=== PATIENT | male | born 1960 | race Caucasian/White ===

== ENCOUNTER → 2016-07-26 | Outpatient (CLI) | payer OTHER ==
[~2016-07-26] VITALS: Ht 175.3 cm; Wt 104.8 kg
[~2016-07-26] MED LIST: ALBUAER2 INH; DXY100 PO; IPRASOL4 NEB; LTRCR30 TOP; MOME200A INH; TIOTCAP INH
[2016-07-26 15:44] VITALS: BP 175/110; PULSE 112; Ht 175.3 cm; Wt 104.8 kg
[2016-07-26 15:45] VITALS: BP 156/84
== END | disposition home or self-care (01) ==
LOC: C.NEUR 15:02
PROVIDERS: ATTEND Physician Assistant
DX: G47.33 Obstructive sleep apnea (adult) (pediatric) (principal)

== ENCOUNTER → 2016-12-18 | Outpatient (CLI) | payer OTHER ==
[2016-12-18 18:19] LABS: BLOOD UREA NITROGEN 12 mg/dl (7-18); CALCIUM 9.3 mg/dl (8.5-10.1); CARBON DIOXIDE 33 mmol/L (21-32); CHLORIDE 102 mmol/L (98-107); GLUCOSE 105 mg/dl (70-99); POTASSIUM 4.2 mmol/L (3.5-5.1); SODIUM 138 mmol/L (136-145)
== END | disposition home or self-care (01) ==
LOC: C.LABPVFM 11:14
PROVIDERS: ATTEND Family Medicine
DX: I10 Essential (primary) hypertension (principal)

== ENCOUNTER → 2017-09-02 | Outpatient (CLI) | payer OTHER ==
[~2017-09-02] VITALS: Ht 175.3 cm; Wt 102.7 kg
[2017-09-02 16:27] VITALS: BP 146/87; PULSE 102; Ht 175.3 cm; Wt 102.7 kg
== END | disposition home or self-care (01) ==
LOC: C.NEUR 15:20
PROVIDERS: ATTEND Physician Assistant Medical
DX: G47.33 Obstructive sleep apnea (adult) (pediatric) (principal); J44.9 Chronic obstructive pulmonary disease, unspecified; R06.2 Wheezing

== ENCOUNTER → 2017-11-18 | Outpatient (CLI) | payer OTHER ==
[2017-11-17 17:44] LABS: BASO % 0.6 %; BASO ABS # 0.04 K/uL (0-0.2); EOS % 1.5 %; HEMATOCRIT 45.1 % (42-52); HEMOGLOBIN 15.6 g/dL (14.0-18.0); IG# 0.04 K/uL (0.00-0.02); LYMPH % 34.4 %; LYMPH ABS # 2.31 K/uL (1.2-3.4); MEAN CELL VOLUME 100.4 fL (80-100); MEAN CORPUSCULAR HEMOGLOBIN 34.7 pg (25-34); MEAN CORPUSCULAR HGB CONC 34.6 g/dl (32-36); MEAN PLATELET VOLUME 10.5 fL (7.4-10.4); MONO % 6.1 %; MONO ABS # 0.41 K/uL (0.11-0.59); NEUT % 56.8 %; NEUT ABS # 3.81 K/uL (1.4-6.5); PLATELET COUNT 252 K/uL (130-400); RED CELL DISTRIBUTION WIDTH CV 13.6 % (11.5-14.5); RED CELL DISTRIBUTION WIDTH SD 49.7 fL (36.4-46.3); WHITE BLOOD COUNT 6.71 K/uL (4.8-10.8)
[2017-11-17 18:12] LABS: ALBUMIN 3.5 gm/dl (3.4-5.0); ALKALINE PHOSPHATASE 94 U/L (45-117); ALT/SGPT 27 U/L (12-78); AST/SGOT 17 U/L (15-37); BLOOD UREA NITROGEN 13 mg/dl (7-18); CALCIUM 8.6 mg/dl (8.5-10.1); CARBON DIOXIDE 29 mmol/L (21-32); CHOLESTEROL 182 mg/dl (0-200); CREATININE 1.31 mg/dl (0.60-1.40); GLUCOSE 142 mg/dl (70-99); LDL CHOLESTEROL CALCULATED 75 mg/dl; POTASSIUM 4.2 mmol/L (3.5-5.1); SODIUM 140 mmol/L (136-145); TOTAL PROTEIN 7.3 gm/dl (6.4-8.2)
[~2017-11-18] MED LIST changes: +IPRA-64 NEB; -IPRASOL4 NEB
[2017-11-18 07:03] LABS: HEMOGLOBIN A1C 5.9 % (4.5-5.6)
== END | disposition home or self-care (01) ==
LOC: C.LABPVFM 16:27
PROVIDERS: ATTEND Family Medicine
DX: F17.210 Nicotine dependence, cigarettes, uncomplicated (principal); I10 Essential (primary) hypertension

== ENCOUNTER 2021-11-28 10:23 | Inpatient (IN) ==
[2021-11-28] MEDS ORDERED: ACETAMINOPHEN 1,000 MG/100 ML VIAL IV STA (11:37)
[2021-11-28] MEDS ORDERED: LORazepam 2 MG/2 ML SYR IV STA ×2 (11:37→12:16)
[2021-11-28] MEDS ORDERED: MULTI-VITAMIN INFUSION 10 ML, THIAMINE HCL 100 MG, FOLIC ACID 1 MG in SODIUM CHLORIDE 0... IV ONE (11:37)
[2021-11-28] MEDS ORDERED: methylPREDNISolone 125 MG/2 ML VIAL IV STA (11:39)
[2021-11-28] MEDS ORDERED: ALBUT/IPRATROP 3MG/0.5MG NEB 3 ML VIAL NEB ONE (11:40)
--- NOTE | 2021-11-28 11:49 | Emergency Department Note ---
Impression & Plan Acute respiratory failure, COPD exacerbation, Alcohol withdrawal, Left sided abdominal pain ED Provider Note NAME: ROBERT PUGH AGE: 61 SEX: M ARRIVES VIA: Walk-In INFORMANT: Patient ED PROVIDER(S): August Rm MD CHIEF COMPLAINT: Abdominal pain, shortness of breath, referred. PLAN: Disposition: Admit MEDICAL DECISION MAKING: The patient is a pleasant 61-year-old gentleman with a past medical history of COPD, alcohol abuse/dependence, hyperlipidemia, hypertension, CAROLYN, history of lacunar stroke who presents to the emergency department valuation of left flank/abdominal pain that has been ongoing since Friday when he reports he had a fall when he recalls "choking on a pretzel" but also admits that he was drinking alcohol. The patient denies any history of withdrawal but admits he is not gone more than a day without drinking in a long time. He reports he last had a drink this morning. He was seen by his PCPs office and was referred to the emergency department today. He denies blood in his urine. He denies vomiting or diarrhea. He reports shortness of breath with increased wheezing in the setting of his COPD and daily smoking. On arrival, the patient is uncomfortable but no acute distress, afebrile, HR 100s with O2 saturation in the mid 90s but with respiratory rate in the mid to upper 20s and mild increased work of breathing with diffuse wheezes bilaterally with prolonged expiratory phase. He appears clinically dry. He has mild left upper abdominal and flank tenderness without guarding or rebound. EKG without overt acute ischemia. WBC, hemoglobin and platelets within normal limits. Chemistry without metabolic acidosis. Electrolytes without significant abnormality. LFTs unremarkable. High-sensitivity troponin 29.7, nonspecific. Lipase within normal limits. Medical alcohol was undetectable. COVID-19 RNA, JEROME test was negative. CT of the chest and abdomen pelvis were performed and were negative for acute traumatic findings. Note is made of mucous plugging. Upon reevaluation the patient continued to have increased work of breathing despite hour-long DuoNeb and steroid treatment. Thus, he was placed on BiPAP for respiratory failure. He was also treated with IV Ativan for suspicion of alcohol withdrawal. Case was discussed with Dr. Clarke, [facility] hospitalist, who will evaluate the patient for admission. Triage Nursing notes reviewed and agree them. Prior medical records reviewed Vital Signs: reviewed and remarkable for tachypnea and tachycardia. Differential diagnosis: Appendicitis, testicular torsion, infections, diverticulitis, UTI, obstruction, mesenteric ischemia, aortic pathology, inflammatory bowel disease, renal colic, PUD, pancreatitis, biliary pathology, hernia, volvulus, constipation, as well as other pathologies. ER treatment provided: See below. Diagnostics interpreted by me: ECG: Sinus tachycardia, 124 bpm, no ectopy, no overt ST elevation or depression, QTC 445, QRS 70. Cardiac Monitoring: An order for continuous cardiac monitoring was placed and demonstrated sinus tachycardia, 124 bpm, no ectopy. Laboratory studies: See below Imaging studies: See below Consultation(s): Dr. Clarke, [facility] hospitalist HPI: The patient is a pleasant 61-year-old gentleman with a past medical history of COPD, alcohol abuse/dependence, hyperlipidemia, hypertension, CAROLYN, history of lacunar stroke who presents to the emergency department valuation of left flank/abdominal pain that has been ongoing since Friday when he reports he had a fall when he recalls "choking on a pretzel" but also admits that he was drinking alcohol. The patient denies any history of withdrawal but admits he is not gone more than a day without drinking in a long time. He reports he last had a drink this morning. He was seen by his PCPs office and was referred to the emergency department today. He denies blood in his urine. He denies vomiting or diarrhea. He reports shortness of breath with increased wheezing in the setting of his COPD and daily smoking. ROS: See above HPI for pertinent positives & negatives. A total of 10 systems reviewed and were otherwise negative. VITALS:See Below PHYSICAL EXAMINATION: GENERAL: Awake, alert, uncomfortable-appearing, in no distress HENT: Normocephalic, atraumatic. Oropharynx with dry mucous membranes and otherwise unremarkable. EYES: Normal conjunctiva. Sclera non-icteric. NECK: Supple. No nuchal rigidity. FROM. No JVD. RESPIRATORY: Mild increased work of breathing with diffuse wheezes bilaterally with prolonged expiratory phase. CARDIAC: Regular rate, normal rhythm. Extremities warm and well perfused. Pulses equal. ABDOMEN: Soft, non-distended. No tenderness to palpation. No rebound or guarding. No masses. RECTAL: Deferred. MUSCULOSKELETAL: Chest examination reveals no tenderness. The back is symmetrical on inspection without obvious abnormality. There is no CVA tenderness to palpation. No joint edema. LOWER EXTREMITIES: Calves are equal size bilaterally and non-tender. No edema. No discoloration. NEURO: Normal sensorium. No sensory or motor deficits noted. SKIN: No rash or jaundice noted. ED COURSE: Critical Care: I have personally spent greater than 75 minutes of critical care time in the direct management of this patient. This includes bedside care, interpretation of diagnostic studies, and testing, discussion with consultants, patient, and family members, and other required patient management activities. This 75 minutes is in excess of all separately billable procedures. August Rm MD Past Med/Surg History Medical History Alcohol abuse, in remission COPD (chronic obstructive pulmonary disease) Encounter for immunization Essential hypertension Loss of consciousness Mixed hyperlipidemia Nondisplaced fracture of left great toe Obesity Routine health maintenance Syncope Unresponsive episode Surgical History History of hernia repair History of incision and drainage of skin abscess, simple History of vasectomy Family History Mother Hypertension Myocardial infarction Diabetes Stroke Father Myocardial infarction Hyperlipemia Colorectal cancer Denies family history of Ovarian cancer Prostate cancer Breast cancer Social History Smoking Status: Current every day smoker packs per day: 0.5; Cigarettes Per Day: 15; Second Hand Exposure: No; Do You Dip or Chew Tobacco: No; Tobacco Cessation Education Requested by Patient: No Hx Alcohol Use: Yes Alcohol type: beer Alcohol Intake Frequency: 4 or More x per/Week Hx Substance Use: No Preferred Language: Maltese Communication Ability: Effective Investor Relations Specialist Required: No Beliefs That Will Affect Care: None marital status: Current Living Situation: Alone current occupational status: retired Other Information That Helps Us Care for You: No Feels Safe at Home: Yes Safety Concerns: Feels Safe At This Time Dental Care, Regularly: Yes Seatbelt Use: never Sunscreen Use: No Assistive Devices: CPAP Allergies Allergies Allergy/AdvReac Type Severity Reaction Status Date / Time No Known Allergies Allergy NONE Verified 11/28/21 09:26 Home Meds Home Medications Medication Instructions Recorded Confirmed aspirin 81 mg tablet,delayed 81 mg PO DAILY 08/31/19 11/28/21 release Previous Rx's Medication Instructions Recorded fluticasone fur. 100 mcg-umeclid 1 inh inhalation DAILY #60 ea 02/23/21 62.5 mcg-vilant 25 mcg inhalat.powder (Trelegy Ellipta) levalbuterol HCl 0.31 mg/3 mL See Rx Instructions .Route 05/04/21 solution for nebulization .COMPLEX #540 mL lisinopril 20 1 tab PO DAILY #90 tabs 05/04/21 mg-hydrochlorothiazide 25 mg tablet nicotine 14 mg/24 hr daily 1 patch transdermal DAILY #28 ea 05/04/21 transdermal patch nicotine 7 mg/24 hr daily 1 patch transdermal Q24H #28 ea 05/04/21 transdermal patch cyclobenzaprine 10 mg tablet 10 mg PO TID PRN muscle spasm #14 05/25/21 tabs blood sugar diagnostic (Blood #50 ea 09/03/21 Glucose Test) blood-glucose meter #1 ea 09/03/21 buspirone 15 mg tablet 15 mg PO TID PRN anxiety #60 tabs 09/03/21 varenicline 1 mg tablet 1 mg PO BID #180 tabs 10/08/21 albuterol sulfate 90 mcg/actuation 2 puff inhalation .COMPLEX PRN 10/30/21 aerosol inhaler shortness of breath or wheezing #18 grams lancets 26 gauge #100 ea 11/28/21 Results & Data (ED) Vital Signs Vital Signs - 24 hr 11/28/21 10:29 11/28/21 11:52 11/28/21 11:54 Temperature 36.8 C Temperature Source Temporal Artery Scan Pulse Rate 85 126 H 120 H Pulse Rate from SpO2 Sensor 124 H 120 H Respiratory Rate 18 Respiratory Effort / Characteristics Respiratory Pattern Blood Pressure 163/89 H Blood Pressure Mean 113 Pulse Oximetry 97 99 99 Oxygen Delivery Method Room Air Fraction of Inspired Oxygen Sepsis Recent Fever Within 48 Hours No Sepsis New/Unexplained Change in Mental Status No Sepsis Action Taken by Nursing No Action Required 11/28/21 11:54 11/28/21 12:00 11/28/21 12:01 Temperature Temperature Source Pulse Rate 117 H 124 H Pulse Rate from SpO2 Sensor 118 H 120 H Respiratory Rate Respiratory Effort / Characteristics Respiratory Pattern Blood Pressure 173/143 H Blood Pressure Mean 153 Pulse Oximetry 99 94 Oxygen Delivery Method Fraction of Inspired Oxygen Sepsis Recent Fever Within 48 Hours Sepsis New/Unexplained Change in Mental Status Sepsis Action Taken by Nursing 11/28/21 12:01 11/28/21 12:10 11/28/21 12:20 Temperature Temperature Source Pulse Rate 119 H 122 H Pulse Rate from SpO2 Sensor 119 H 122 H Respiratory Rate Respiratory Effort / Characteristics Respiratory Pattern Blood Pressure 126/80 Blood Pressure Mean 95 Pulse Oximetry 99 100 Oxygen Delivery Method Fraction of Inspired Oxygen Sepsis Recent Fever Within 48 Hours Sepsis New/Unexplained Change in Mental Status Sepsis Action Taken by Nursing 11/28/21 12:30 11/28/21 12:30 11/28/21 12:40 Temperature Temperature Source Pulse Rate 116 H 119 H Pulse Rate from SpO2 Sensor 116 H Respiratory Rate Respiratory Effort / Characteristics Respiratory Pattern Blood Pressure 139/86 Blood Pressure Mean 103 Pulse Oximetry 99 Oxygen Delivery Method Fraction of Inspired Oxygen Sepsis Recent Fever Within 48 Hours Sepsis New/Unexplained Change in Mental Status Sepsis Action Taken by Nursing 11/28/21 13:03 11/28/21 13:04 11/28/21 13:04 Temperature Temperature Source Pulse Rate Pulse Rate from SpO2 Sensor 119 H 118 H Respiratory Rate 11 L Respiratory Effort / Characteristics Respiratory Pattern Blood Pressure 161/98 H Blood Pressure Mean 119 Pulse Oximetry 96 96 Oxygen Delivery Method Fraction of Inspired Oxygen Sepsis Recent Fever Within 48 Hours Sepsis New/Unexplained Change in Mental Status Sepsis Action Taken by Nursing 11/28/21 13:10 11/28/21 13:20 11/28/21 13:30 Temperature Temperature Source Pulse Rate 116 H 122 H Pulse Rate from SpO2 Sensor 122 H Respiratory Rate 21 28 H Respiratory Effort / Characteristics Respiratory Pattern Blood Pressure 165/105 H Blood Pressure Mean 125 Pulse Oximetry 95 Oxygen Delivery Method Fraction of Inspired Oxygen Sepsis Recent Fever Within 48 Hours Sepsis New/Unexplained Change in Mental Status Sepsis Action Taken by Nursing 11/28/21 13:30 11/28/21 13:40 11/28/21 13:50 Temperature Temperature Source Pulse Rate 116 H 112 H 124 H Pulse Rate from SpO2 Sensor Respiratory Rate 20 18 29 H Respiratory Effort / Characteristics Respiratory Pattern Blood Pressure Blood Pressure Mean Pulse Oximetry Oxygen Delivery Method Fraction of Inspired Oxygen Sepsis Recent Fever Within 48 Hours Sepsis New/Unexplained Change in Mental Status Sepsis Action Taken by Nursing 11/28/21 14:00 11/28/21 14:00 11/28/21 14:10 Temperature Temperature Source Pulse Rate 118 H 123 H Pulse Rate from SpO2 Sensor 118 H Respiratory Rate 20 25 H Respiratory Effort / Characteristics Respiratory Pattern Blood Pressure 182/111 H Blood Pressure Mean 134 Pulse Oximetry 96 Oxygen Delivery Method Fraction of Inspired Oxygen Sepsis Recent Fever Within 48 Hours Sepsis New/Unexplained Change in Mental Status Sepsis Action Taken by Nursing 11/28/21 13:59 Temperature Temperature Source Pulse Rate 119 H Pulse Rate from SpO2 Sensor Respiratory Rate 19 Respiratory Effort / Characteristics Spontaneous Respiratory Pattern Regular Blood Pressure Blood Pressure Mean Pulse Oximetry 95 Oxygen Delivery Method Fraction of Inspired Oxygen 28 Sepsis Recent Fever Within 48 Hours Sepsis New/Unexplained Change in Mental Status Sepsis Action Taken by Nursing Laboratory Data Attestation: I reviewed the patient's lab results. Result diagrams: 11/28/21 11:40 11/28/21 11:40 Lab Results 11/28/21 11/28/21 11/28/21 Range/Units 11:40 11:40 11:40 WBC 8.13 (4.8-10.8) K/ul RBC 4.12 L (4.63-6.08) M/uL Hgb 14.1 (14.0-18.0) g/dl POC Hgb (14.0-18.0) g/dl Hct 39.4 L (40.1-51.0) % POC Hct (42-52) % MCV 95.6 (80.0-100.0) fL MCH 34.2 H (25.0-34.0) pg MCHC 35.8 (32.0-36.0) g/dL RDW Std Deviation 45.5 (36.4-46.3) fL RDW Coeff of Tommy 13.0 (11.5-14.5) % Plt Count 303 (130-400) K/uL MPV 9.8 (9.4-12.4) fL Immature Gran % (Auto) 1.1 % Neut % (Auto) 68.9 % Lymph % (Auto) 21.0 % [place] % (Auto) 6.8 % Eos % (Auto) 1.5 % Baso % (Auto) 0.7 % Neut # (Auto) 5.60 (1.4-6.5) K/uL Lymph # (Auto) 1.71 (1.2-3.4) K/uL [place] # (Auto) 0.55 (0.24-0.82) K/uL Eos # (Auto) 0.12 (0-0.50) K/uL Baso # (Auto) 0.06 (0-0.2) K/uL Immature Gran # (Auto) 0.09 H (0.00-0.02) K/uL PT (9.0-12.0) Seconds INR (0.9-1.1) POC Sodium (135-144) mmol/L Sodium 133 L (136-145) mmol/L POC Potassium (3.3-5.0) mmol/L Potassium 4.3 (3.5-5.1) mmol/L POC Chloride (101-112) mmol/L Chloride 94 L (98-107) mmol/L Carbon Dioxide 29 (21-32) mmol/L POC Total CO2 (24-31) mmol/L Anion Gap 10 (3-11) POC Anion Gap (16-25) mmol/L POC BUN (7-18) mg/dl BUN 12 (6-23) mg/dl Creatinine 1.14 (0.6-1.4) mg/dl POC Creatinine (0.6-1.3) mg/dl Est Cr Clr Drug Dosing Not Reportable Est GFR ( Amer) 80.6 ml/min Est GFR (Non-Af Amer) 69.5 ml/min BUN/Creatinine Ratio 10.5 (10-20) Glucose 161 H (70-99(Fasting)) mg/dl POC Glucose (other) (70-99) mg/dl Calcium 9.5 (8.5-10.1) mg/dl POC Ioniz Calcium Renzo (1.12-1.32) mmol/l Phosphorus (2.5-4.9) mg/dl Magnesium (1.7-2.4) mg/dl Total Bilirubin 0.6 (0.2-1.0) mg/dl AST 34 (13-39) U/L ALT 45 (7-52) U/L Alkaline Phosphatase 75 (34-104) U/L Troponin I High Sens 29.7 H (0-20) pg/ml Total Protein 7.6 (6.0-8.3) gm/dl Albumin 4.2 (3.4-5.0) gm/dl Globulin 3.4 (2.5-4.0) gm/dl Albumin/Globulin Ratio 1.2 (0.9-2) Lipase 13 (11-82) U/L Ethyl Alcohol mg/dL (<10.0) mg/dl SARS-CoV-2, RNA, NAAT (NEGATIVE) 11/28/21 11/28/21 11/28/21 Range/Units 11:40 11:40 11:40 WBC (4.8-10.8) K/ul RBC (4.63-6.08) M/uL Hgb (14.0-18.0) g/dl POC Hgb (14.0-18.0) g/dl Hct (40.1-51.0) % POC Hct (42-52) % MCV (80.0-100.0) fL MCH (25.0-34.0) pg MCHC (32.0-36.0) g/dL RDW Std Deviation (36.4-46.3) fL RDW Coeff of Tommy (11.5-14.5) % Plt Count (130-400) K/uL MPV (9.4-12.4) fL Immature Gran % (Auto) % Neut % (Auto) % Lymph % (Auto) % [place] % (Auto) % Eos % (Auto) % Baso % (Auto) % Neut # (Auto) (1.4-6.5) K/uL Lymph # (Auto) (1.2-3.4) K/uL [place] # (Auto) (0.24-0.82) K/uL Eos # (Auto) (0-0.50) K/uL Baso # (Auto) (0-0.2) K/uL Immature Gran # (Auto) (0.00-0.02) K/uL PT 9.9 (9.0-12.0) Seconds INR 0.9 (0.9-1.1) POC Sodium (135-144) mmol/L Sodium (136-145) mmol/L POC Potassium (3.3-5.0) mmol/L Potassium (3.5-5.1) mmol/L POC Chloride (101-112) mmol/L Chloride (98-107) mmol/L Carbon Dioxide (21-32) mmol/L POC Total CO2 (24-31) mmol/L Anion Gap (3-11) POC Anion Gap (16-25) mmol/L POC BUN (7-18) mg/dl BUN (6-23) mg/dl Creatinine (0.6-1.4) mg/dl POC Creatinine (0.6-1.3) mg/dl Est Cr Clr Drug Dosing Est GFR ( Amer) ml/min Est GFR (Non-Af Amer) ml/min BUN/Creatinine Ratio (10-20) Glucose (70-99(Fasting)) mg/dl POC Glucose (other) (70-99) mg/dl Calcium (8.5-10.1) mg/dl POC Ioniz Calcium Renzo (1.12-1.32) mmol/l Phosphorus 3.4 (2.5-4.9) mg/dl Magnesium 1.7 (1.7-2.4) mg/dl Total Bilirubin (0.2-1.0) mg/dl AST (13-39) U/L ALT (7-52) U/L Alkaline Phosphatase (34-104) U/L Troponin I High Sens (0-20) pg/ml Total Protein (6.0-8.3) gm/dl Albumin (3.4-5.0) gm/dl Globulin (2.5-4.0) gm/dl Albumin/Globulin Ratio (0.9-2) Lipase (11-82) U/L Ethyl Alcohol mg/dL < 10.0 (<10.0) mg/dl SARS-CoV-2, RNA, NAAT (NEGATIVE) 11/28/21 11/28/21 Range/Units 11:47 12:20 WBC (4.8-10.8) K/ul RBC (4.63-6.08) M/uL Hgb (14.0-18.0) g/dl POC Hgb 14.3 (14.0-18.0) g/dl Hct (40.1-51.0) % POC Hct 42 (42-52) % MCV (80.0-100.0) fL MCH (25.0-34.0) pg MCHC (32.0-36.0) g/dL RDW Std Deviation (36.4-46.3) fL RDW Coeff of Tommy (11.5-14.5) % Plt Count (130-400) K/uL MPV (9.4-12.4) fL Immature Gran % (Auto) % Neut % (Auto) % Lymph % (Auto) % [place] % (Auto) % Eos % (Auto) % Baso % (Auto) % Neut # (Auto) (1.4-6.5) K/uL Lymph # (Auto) (1.2-3.4) K/uL [place] # (Auto) (0.24-0.82) K/uL Eos # (Auto) (0-0.50) K/uL Baso # (Auto) (0-0.2) K/uL Immature Gran # (Auto) (0.00-0.02) K/uL PT (9.0-12.0) Seconds INR (0.9-1.1) POC Sodium 134 L (135-144) mmol/L Sodium (136-145) mmol/L POC Potassium 4.4 (3.3-5.0) mmol/L Potassium (3.5-5.1) mmol/L POC Chloride 93 L (101-112) mmol/L Chloride (98-107) mmol/L Carbon Dioxide (21-32) mmol/L POC Total CO2 30 (24-31) mmol/L Anion Gap (3-11) POC Anion Gap 16.0 (16-25) mmol/L POC BUN 12 (7-18) mg/dl BUN (6-23) mg/dl Creatinine (0.6-1.4) mg/dl POC Creatinine 1.1 (0.6-1.3) mg/dl Est Cr Clr Drug Dosing Est GFR ( Amer) ml/min Est GFR (Non-Af Amer) ml/min BUN/Creatinine Ratio (10-20) Glucose (70-99(Fasting)) mg/dl POC Glucose (other) 173 H (70-99) mg/dl Calcium (8.5-10.1) mg/dl POC Ioniz Calcium Rezno 1.14 (1.12-1.32) mmol/l Phosphorus (2.5-4.9) mg/dl Magnesium (1.7-2.4) mg/dl Total Bilirubin (0.2-1.0) mg/dl AST (13-39) U/L ALT (7-52) U/L Alkaline Phosphatase (34-104) U/L Troponin I High Sens (0-20) pg/ml Total Protein (6.0-8.3) gm/dl Albumin (3.4-5.0) gm/dl Globulin (2.5-4.0) gm/dl Albumin/Globulin Ratio (0.9-2) Lipase (11-82) U/L Ethyl Alcohol mg/dL (<10.0) mg/dl SARS-CoV-2, RNA, NAAT NEGATIVE (NEGATIVE) Administered Medications Discontinued Medications Albuterol (Albut/Ipratrop 3mg/0.5mg Neb 3 Ml Vial) 12 ml NEB ONE ONE; Protocol Stop: 11/28/21 11:41 Last Admin: 11/28/21 11:49 Dose: 12 ml Documented By: HMR Multivitamins 10 ml/ Thiamine HCl 100 mg/ Folic Acid 1 mg/Sodium Chloride 1,011.2 mls @ 1,011.2 mls/hr IV .Q1H ONE Stop: 11/28/21 12:36 Last Admin: 11/28/21 12:07 Dose: 1,011.2 mls/hr Documented By: AB Acetaminophen (Ofirmev) 1,000 mg in 100 mls @ 400 mls/hr IV NOW STA Stop: 11/28/21 11:51 Last Admin: 11/28/21 11:49 Dose: 400 mls/hr Documented By: Ioversol (Optiray 320 100ml) 94 ml IV ONCE ONE Stop: 11/28/21 12:56 Last Admin: 11/28/21 12:55 Dose: 94 ml Documented By: URBANO(2) Labetalol HCl (Labetalol Hcl Iv 5 Mg/Ml 20ml) 5 mg IV NOW STA Stop: 11/28/21 14:45 Last Admin: 11/28/21 15:09 Dose: 5 mg Documented By: NEO Co-signed By: DEUCE Lorazepam (Lorazepam 2 Mg/1 Ml Vial) 1 mg IV NOW STA; Protocol Stop: 11/28/21 11:38 Last Admin: 11/28/21 11:55 Dose: 1 mg Documented By: Lorazepam (Lorazepam 2 Mg/1 Ml Vial) 2 mg IV NOW STA; Protocol Stop: 11/28/21 12:17 Last Admin: 11/28/21 12:26 Dose: 2 mg Documented By: Methylprednisolone (Methylprednisolone 125 Mg/2 Ml Vial) 125 mg IV NOW STA Stop: 11/28/21 11:40 Last Admin: 11/28/21 11:49 Dose: 125 mg Documented By: Morphine Sulfate (Morphine Sulfate 2 Mg/Ml Carp) 1 mg IV NOW STA Stop: 11/28/21 14:40 Last Admin: 11/28/21 15:15 Dose: 1 mg Documented By: NEO Imaging Data Radiologist's Impression: Abdomen/Pelvis CT 11/28/21 11:39 CT OF THE ABDOMEN AND PELVIS WITH CONTRAST CLINICAL HISTORY: left chest/abdomen pain, fall COMPARISON STUDY: Abdominal series December 07, 2015. TECHNIQUE: Following IV administration of 94 mL of Optiray, axial images of the abdomen and pelvis were obtained from the lung bases to the proximal femurs. Images were reviewed in the axial, sagittal, and coronal planes. IV contrast was administered without complication. Automated exposure control was utilized for the study. A dose lowering technique was utilized adhering to the principles of ALARA. FINDINGS: Please note that the chest CT will be reported separately. No hemoperitoneum or pneumoperitoneum is present. This exam is mildly compromised by motion artifact. There is no evidence for traumatic injury to the liver, spleen, adrenal glands, kidneys or pancreas. Hepatic steatosis is noted. No biliary or pancreatic ductal dilatation is present. There is a possible small calculus within lower pole of the left kidney. Subcentimeter hypodense right renal lesion is suboptimally assessed on this exam given motion artifact. However, this favors a cyst. 5.5 cm cyst arising from the lower pole of the left kidney is present. No evidence for a bowel obstruction. Sigmoid diverticulosis is noted without evidence for acute diverticulitis. No acute lumbar spine or pelvic fracture is identified. IMPRESSION: 1. No acute traumatic findings within the abdomen or pelvis although exam moderately compromised by motion artifact. 2. Hepatic steatosis. 3. No bowel obstruction. No bowel wall thickening. Sigmoid diverticulosis with out evidence for acute diverticulitis. ACT 112: Negative or not required by law. Electronically signed by: Negrito Siddiqi M.D. 11/28/2021 1:[address] 11/28/21 11:[address] WITH CONTRAST CT DOSE: 2093.59 mGy.cm HISTORY: Acute chest pain with possible aspiration left chest/ap pain, fall TECHNIQUE: Multiaxial CT images of the chest were performed following the IV administration of 94 cc of Optiray. A dose lowering technique was utilized adhering to the principles of ALARA. COMPARISON: CT abdomen and pelvis of same day, chest CT 05/09/2021. FINDINGS: Unremarkable thyroid. No pathologically enlarged lymph nodes. The heart is normal in size with moderate coronary artery calcifications. Atherosclerosis of the thoracic aorta without aneurysm or dissection. There is patency of the imaged great vessels. Unremarkable pulmonary artery. No pneumothorax, pleural effusion, airspace consolidation or overt pulmonary edema. Multifocal bibasilar predominant mucus plugging. Study is degraded by respiratory motion artifact. Mild emphysema. Stable 2 mm solid nodule of the left lung apex. Stable 4 mm nodule of the right upper lobe, image 83. Small cyst of the superior pole right kidney. Hepatic steatosis. Unremarkable soft tissues with bilateral gynecomastia. No acute fracture. Posterior disc osteophyte complex at T10-T11. Mild inferior compression of the L1 vertebral body is likely chronic. IMPRESSION: 1. Study degraded by respiratory motion artifact. 2. Bibasilar predominant mucus plugging. 3. No pleural effusion or airspace consolidation. 4. No acute fracture or pneumothorax. ACT 112: Negative or not required by law. Electronically signed by: Naeem Silverio M.D. 11/28/2021 1:42 PM Discharge Plan Visit Data Chief Complaint: Abdominal Pain Stated Complaint: PAIN IN RIBS, SOB ED Provider: August Rm Discharge Problem: Acute respiratory failure, COPD exacerbation, Alcohol withdrawal, Left sided abdominal pain
[2021-11-28 12:01] LABS: iSTAT Creatinine 1.1 mg/dl (0.6-1.3); iSTAT Hemoglobin 14.3 g/dl (14.0-18.0); iSTAT Ionized Calcium 1.14 mmol/l (1.12-1.32); iSTAT Potassium 4.4 mmol/L (3.3-5.0)
[2021-11-28 12:05] LABS: Basophils # (auto) 0.06 K/uL (0-0.2); Basophils % (auto) 0.7 %; Eosinophils # (auto) 0.12 K/uL (0-0.50); Eosinophils % (auto) 1.5 %; Hematocrit (blood only) 39.4 % (40.1-51.0); Hemoglobin 14.1 g/dl (14.0-18.0); Immature Granulocytes # (auto) 0.09 K/uL (0.00-0.02); Immature Granulocytes % (auto) 1.1 %; Lymphocytes # (auto) 1.71 K/uL (1.2-3.4); Mean Corpuscular Hemoglobin 34.2 pg (25.0-34.0); Mean Corpuscular Hgb Conc 35.8 g/dL (32.0-36.0); Mean Corpuscular Volume 95.6 fL (80.0-100.0); Mean Platelet Volume 9.8 fL (9.4-12.4); Monocytes # (auto) 0.55 K/uL (0.24-0.82); Monocytes % (auto) 6.8 %; Neutrophils % (auto) 68.9 %; Platelet Count 303 K/uL (130-400); RDW Standard Deviation 45.5 fL (36.4-46.3); Red Blood Count 4.12 M/uL (4.63-6.08); White Blood Count 8.13 K/ul (4.8-10.8)
[2021-11-28 12:24] LABS: INR 0.9 (0.9-1.1); Prothrombin Time 9.9 Seconds (9.0-12.0)
[2021-11-28 12:32] LABS: Alanine Aminotransferase 45 U/L (7-52); Albumin Globulin Ratio 1.2 (0.9-2); Albumin Level 4.2 gm/dl (3.4-5.0); Alkaline Phosphatase 75 U/L (34-104); Anion Gap 10 (3-11); Aspartate Aminotransferase 34 U/L (13-39); BUN Creatinine Ratio 10.5 (10-20); Bilirubin,Total 0.6 mg/dl (0.2-1.0); Blood Urea Nitrogen 12 mg/dl (6-23); Calcium 9.5 mg/dl (8.5-10.1); Carbon Dioxide 29 mmol/L (21-32); Chloride 94 mmol/L (98-107); Est GFR (African American) 80.6 ml/min; Est GFR (Non-African American) 69.5 ml/min; Globulin 3.4 gm/dl (2.5-4.0); Glucose 161 mg/dl (70-99(Fasting)); Lipase 13 U/L (11-82); Magnesium 1.7 mg/dl (1.7-2.4); Phosphorus 3.4 mg/dl (2.5-4.9); Potassium 4.3 mmol/L (3.5-5.1); Sodium 133 mmol/L (136-145); Total Protein 7.6 gm/dl (6.0-8.3)
[2021-11-28] MEDS ORDERED: OPTIRAY 320 100ml IV ONE (12:55)
--- NOTE | 2021-11-28 13:15 | CT Scan Report ---
CT OF THE ABDOMEN AND PELVIS WITH CONTRAST CLINICAL HISTORY: left chest/abdomen pain, fall COMPARISON STUDY: Abdominal series December 07, 2015. TECHNIQUE: Following IV administration of 94 mL of Optiray, axial images of the abdomen and pelvis we re obtained from the lung bases to the proximal femurs. Images were reviewed in the axial, sagittal, and coronal planes. IV contrast was administered without complication. Automated exposure control wa s utilized for the study. A dose lowering technique was utilized adhering to the principles of ALARA . FINDINGS: Please note that the chest CT will be reported separately. No hemoperitoneum or pneumoperit oneum is present. This exam is mildly compromised by motion artifact. There is no evidence for trauma tic injury to the liver, spleen, adrenal glands, kidneys or pancreas. Hepatic steatosis is noted. No biliary or pancreatic ductal dilatation is present. There is a possible small calculus within lower p ole of the left kidney. Subcentimeter hypodense right renal lesion is suboptimally assessed on this e xam given motion artifact. However, this favors a cyst. 5.5 cm cyst arising from the lower pole of th e left kidney is present. No evidence for a bowel obstruction. Sigmoid diverticulosis is noted withou t evidence for acute diverticulitis. No acute lumbar spine or pelvic fracture is identified. IMPRESSION: 1. No acute traumatic findings within the abdomen or pelvis although exam moderately compromised by m otion artifact. 2. Hepatic steatosis. 3. No bowel obstruction. No bowel wall thickening. Sigmoid diverticulosis without evidence for acute diverticulitis. ACT 112: Negative or not required by law. Electronically signed by: Negrito Siddiqi M.D. 11/28/2021 1:13 PM
--- NOTE | 2021-11-28 13:43 | CT Scan Report ---
CHEST CT WITH CONTRAST CT DOSE: 2093.59 mGy.cm HISTORY: Acute chest pain with possible aspiration left chest/ap pain, fall TECHNIQUE: Multiaxial CT images of the chest were performed following the IV administration of 94 cc of Optiray. A dose lowering technique was utilized adhering to the principles of ALARA. COMPARISON: CT abdomen and pelvis of same day, chest CT 05/09/2021. FINDINGS: Unremarkable thyroid. No pathologically enlarged lymph nodes. The heart is normal in size w ith moderate coronary artery calcifications. Atherosclerosis of the thoracic aorta without aneurysm o r dissection. There is patency of the imaged great vessels. Unremarkable pulmonary artery. No pneumothorax, pleural effusion, airspace consolidation or overt pulmonary edema. Multifocal bibasi lar predominant mucus plugging. Study is degraded by respiratory motion artifact. Mild emphysema. Sta ble 2 mm solid nodule of the left lung apex. Stable 4 mm nodule of the right upper lobe, image 83. Small cyst of the superior pole right kidney. Hepatic steatosis. Unremarkable soft tissues with bilat eral gynecomastia. No acute fracture. Posterior disc osteophyte complex at T10-T11. Mild inferior com pression of the L1 vertebral body is likely chronic. IMPRESSION: 1. Study degraded by respiratory motion artifact. 2. Bibasilar predominant mucus plugging. 3. No pleural effusion or airspace consolidation. 4. No acute fracture or pneumothorax. ACT 112: Negative or not required by law. Electronically signed by: Naeem Silverio M.D. 11/28/2021 1:42 PM
--- NOTE | 2021-11-28 13:44 | Electrocardiogram Report ---
Test Reason : Blood Pressure : / mmHG Vent. Rate : 124 BPM Atrial Rate : 124 BPM P-R Int : 144 ms QRS Dur : 070 ms QT Int : 310 ms P-R-T Axes : 070 031 063 degrees QTc Int : 445 ms Sinus tachycardia Otherwise normal ECG When compared with ECG of 31-AUG-2019 04:10, No significant change was found Confirmed by Hubert Feliciano ([id number]) on 11/28/2021 1:44:10 PM Referred By: Confirmed By:Phil Feliciano
--- NOTE | 2021-11-28 14:11 | History & Physical Report ---
Date of Service November 28, 2021 Assessment & Plan (1) COPD (chronic obstructive pulmonary disease): Plan: Acute on chronic COPD versus mucous plugging Patient with increased wheezing, required hour-long neb and BiPAP in ER No hypoxia Tachypneic on arrival to ER Continue Trelegy/formulary equivalent CTchest: Bibasilar mucous plugging, no pleural effusion or airspace consolidation, no acute fracture or pneumothorax Significant wheezing on exam Continue inhalers Scheduled nebs Azithromycin 500 mg x 3 days Incentive spirometry, flutter valve Guaifenesin twice daily Use percussion vest if not improving Received Methylpred 125 mg in ER, continued Methylpred 40 mg every 8 hours with wean as tolerated History of tobacco use, about 1.5 packs/day. Tobacco cessation encouraged, nicotine patch ordered No PFTs available for review - trop mildly elevated suspicious for demand, repeat pending, no clinical signs of acs On CPAP nightly with CAROLYN, last sleep medicine visit 10/17 Right lower quadrant abdominal pain, constipation versus stricture patient reports only very small bowel movement otherwise no BM in the last week. No obstruction seen on CT, moderate stool burden MiraLAX, bisacodyl ordered No leukocytosis Afebrile Creatinine approximately 1.11.2 at baseline, 1.14 on admission Admitting glucose 161 Ethyl alcohol less than 10 at time of admission COVID-negative CTchest: Bibasilar mucous plugging, no airspace consolidation, no acute fracture/pneumo CTabdomen: No acute traumatic findings, hepatic steatosis, no bowel obstruction, sigmoid diverticulosis without evidence of diverticulitis Bilirubin, AST, ALT, alk phos all within normal limits Patient does report for several months he has had about once a week difficulty swallowing solids and occasionally liquids, with solid food regurgitation about once a week. Otherwise does well. Reports that he does not have pain when swallowing, and does not have a history of reflux, and that he does not think his current symptoms are related to this. Current COPD exacerbation precludes EGD, speech swallow study pending, may consider barium esophagram if able to tolerate Type 2 DM A1c 7.6 at last PCP visit Patient was starting with dietary changes as outpatient, not yet on pharmacologic therapy Glucose checks AC/at bedtime, weight-based basal bolus while inpatient basal 12u BID, CF 35, Ratio 15 BMP daily Hyponatremia Mild, 134 In the setting of chronic alcohol use Improving from prior labs Alcohol abuse Last drink a.m. 12/25 Alcohol negative on admission No history of withdrawal/DTs Reports drinks 28 beers per day, has not had alcohol free day in some time DANIKA S protocol Hypertension Elevated in the setting of pain Continue lisinopril 20 mg, hydrochlorothiazide 25 mg daily Continue aspirin 1 mg morphine given for pain above Additional 10 mg labetalol given for acute hypertension Recheck pending DVT prophylaxis: Lovenox CODE STATUS: Full code Diet: N.p.o. pending speech eval, then heart healthy/MDM (2) Rib pain on left side: (3) Impaired fasting glucose: (4) Obstructive sleep apnea: (5) COPD with respiratory distress, acute: History of Present Illness Primary Care Provider: DO Cal Lynn is a 61-year-old male with a past medical history of obesity, hypertension, type 2 diabetes, tobacco abuse, COPD, alcohol abuse, chronic reflux esophagitis, CAROLYN, and lacunar stroke who presented to the ER with left flank/abdominal pain of 3-4 days. Reports he had a fall at that time, a joke on a pretzel, and was drinking alcohol at that time. Denies history of withdrawal syndrome, but has not gone for more than a day without alcohol use in "a long time ". Last drink this morning. Esteban is seen in the ER at bedside. Reports he initially came in for left abdominal pain which is worsening over the last week after he had a fall. Notes that he has not had a bowel movement in over a week other than a very small 1 today. Pain does not radiate and is in the left upper quadrant slightly off to 1 side by his rib. Does feel his belly is a little bit more bloated than normal. Denies bright red blood per rectum/melena. Reports he has been wheezing more in the last day or 2, although notes this is not what actually brought him in. Comfortable on BiPAP, denies shortness of breath at time of bedside visit. He reports that on arrival to ER he did feel short of breath and was very wheezy. Continues to smoke, 1.52.5 PPD for many years. Drinks alcohol daily, no history of withdrawal/DTs but drinks 28 beers per day and has not had an alcohol free day in some time. Last drink this morning. Denies fever, chills, sweats, cough, diarrhea, constipation, chest pain, Prash pressure, lightheadedness, dizziness. Does feel improved after an hour-long nebulizer and BiPAP, although notes his abdominal pain has not improved much. Did take his medications this Medical History: Reviewed Medications: Reviewed Surgical History: Reviewed Allergies: Reviewed Social History: Current tobacco use, daily alcohol use 28 beers per day with last drink morning of 11/28/2021 Code Status: Full code, surrogate decision maker would be brother Allergies Allergy/AdvReac Type Severity Reaction Status Date / Time No Known Allergies Allergy NONE Verified 11/28/21 09:26 Home Medications Medication Instructions Recorded Confirmed Type aspirin 81 mg tablet,delayed 81 mg PO DAILY 08/31/19 11/28/21 History release fluticasone fur. 100 mcg-umeclid 1 inh inhalation DAILY #60 ea 02/23/21 11/28/21 Rx 62.5 mcg-vilant 25 mcg inhalat.powder (Trelegy Ellipta) levalbuterol HCl 0.31 mg/3 mL See Rx Instructions .Route 05/04/21 11/28/21 Rx solution for nebulization .COMPLEX #540 mL lisinopril 20 1 tab PO DAILY #90 tabs 05/04/21 11/28/21 Rx mg-hydrochlorothiazide 25 mg tablet nicotine 14 mg/24 hr daily 1 patch transdermal DAILY #28 ea 05/04/21 11/28/21 Rx transdermal patch nicotine 21 mg/24 hr daily 1 patch transdermal DAILY #28 ea 05/04/21 11/28/21 Rx transdermal patch nicotine 7 mg/24 hr daily 1 patch transdermal Q24H #28 ea 05/04/21 11/28/21 Rx transdermal patch cyclobenzaprine 10 mg tablet 10 mg PO TID PRN muscle spasm #14 05/25/21 11/28/21 Rx tabs blood sugar diagnostic (Blood #50 ea 09/03/21 11/28/21 Rx Glucose Test) blood-glucose meter #1 ea 09/03/21 11/28/21 Rx buspirone 15 mg tablet 15 mg PO TID PRN anxiety #60 tabs 09/03/21 11/28/21 Rx varenicline 1 mg tablet 1 mg PO BID #180 tabs 10/08/21 11/28/21 Rx albuterol sulfate 90 mcg/actuation 2 puff inhalation .COMPLEX PRN 10/30/21 11/28/21 Rx aerosol inhaler shortness of breath or wheezing #18 grams lancets 26 gauge #100 ea 11/28/21 11/28/21 Rx Past Med/Surg History Medical History Alcohol abuse, in remission COPD (chronic obstructive pulmonary disease) Encounter for immunization Essential hypertension Loss of consciousness Mixed hyperlipidemia Nondisplaced fracture of left great toe Obesity Routine health maintenance Syncope Unresponsive episode Surgical History History of hernia repair History of incision and drainage of skin abscess, simple History of vasectomy Family History Mother Hypertension Myocardial infarction Diabetes Stroke Father Myocardial infarction Hyperlipemia Colorectal cancer Denies family history of Ovarian cancer Prostate cancer Breast cancer Social History Smoking Status: Unknown if ever smoked packs per day: 0.5; Cigarettes Per Day: 15; Second Hand Exposure: No; Hx Alcohol Use: Yes Alcohol Intake Frequency: 4 or More x per/Week Hx Substance Use: No Preferred Language: E[place] marital status: current occupational status: retired Feels Safe at Home: Yes Dental Care, Regularly: Yes Seatbelt Use: never Sunscreen Use: No Review of Systems Review of Systems: All systems reviewed & are unremarkable except as noted in Subjective Physical Exam Physical Exam: General: A&Ox3. NAD. Cooperative. HEENT: Atraumatic, normocephalic. Thick neck habitus. Vision and hearing intact Pulm: Diffuse end expiratory wheezes, scattered slight inspiratory wheezing. Verbal on BiPAP. Symmetrical chest rise. Cardiac: RRR, -mrg. Radial pulses intact and symmetrical. Abdominal: Softly distended, mildly tender focally at left upper quadrant without radiation/rebound. Tympanitic to percussion. Extremities: Warm, dry. No edema. Asphalt Paver Operator strength, hip flexion, ankle dorsiflexion/plantarflexion intact. Results & Data Results & Data ([facility]) Vital Signs (Past 12 Hours) Vital Signs Temp Pulse Resp BP Pulse Ox O2 Del Method 11/28/21 13:20 122 H 28 H 95 11/28/21 13:10 116 H 21 11/28/21 13:04 161/98 H 11/28/21 13:04 11 L 96 11/28/21 13:03 96 11/28/21 12:40 119 H 11/28/21 12:30 116 H 99 11/28/21 12:30 139/86 11/28/21 12:20 122 H 100 11/28/21 12:10 119 H 99 11/28/21 12:01 126/80 11/28/21 12:01 124 H 94 11/28/21 12:00 117 H 99 11/28/21 11:54 173/143 H 11/28/21 11:54 120 H 99 11/28/21 11:52 126 H 99 11/28/21 10:29 36.8 C 85 18 163/89 H 97 Room Air PG Care Time/CCT Total # of Minutes Spent Total Time Spent with Patient: Total time spent is greater than 50% in coordination of care (as documented) at patient's floor/unit and/or counseling patient: Coding Level of Care Code 94517 Initial Inpt Care Lvl 2 Diagnoses COPD (chronic obstructive pulmonary disease) J44.9 Rib pain on left side R07.81 Impaired fasting glucose R73.01 Obstructive sleep apnea G47.33 COPD with respiratory distress, acute J44.1
[2021-11-28] MEDS ORDERED: MoRPHine SULFATE 2 MG/ML CARP IV STA (14:39)
[2021-11-28] MEDS ORDERED: LABETALOL HCL IV 5 MG/ML 20ML IV STA (14:44)
[2021-11-28] MEDS ORDERED: CARBOHYDRATES FOR HYPOGLYCEMIA PO PRN (16:20)
[2021-11-28] MEDS ORDERED: LORazepam 1 MG in SYRINGE 0.5 ML IV PRN (16:20)
[2021-11-28] MEDS ORDERED: DEXTROSE 50% 50 ML SYRINGE IV PRN (16:20)
[2021-11-28] MEDS ORDERED: LORazepam 2 MG in SYRINGE 1 ML IV PRN (16:20)
[2021-11-28] MEDS ORDERED: ACETAMINOPHEN 325 MG TAB PO PRN (16:20)
[2021-11-28] MEDS ORDERED: Ativan IV Alcohol Withdrawal--Active Protocol IV PRN (16:20)
[2021-11-28] MEDS ORDERED: LORazepam 3 MG in SYRINGE 1.5 ML IV PRN (16:20)
[2021-11-28] MEDS ORDERED: busPIRone 15 MG TAB PO PRN (16:20)
[2021-11-28] MEDS ORDERED: ALBUTEROL HFA 8 GM INHALER INH PRN (16:20)
[2021-11-28] MEDS ORDERED: CYCLOBENZAPRINE HCL 10 MG TAB PO PRN (16:20)
[2021-11-28] MEDS ORDERED: bisacodyL 5 MG TABEC PO PRN (16:20)
[2021-11-28] MEDS ORDERED: GLUCAGON FOR INJ 1 MG VIAL SQ PRN (16:20)
[2021-11-28] MEDS ORDERED: GLUCOSE 10 TAB/TUBE PO PRN (16:20)
[2021-11-28] MEDS ORDERED: GLUCOSE 40% GEL 15 GM TUBE PO PRN (16:20)
[2021-11-28] MEDS ORDERED: amLODIPine BESYLATE 5 MG TAB PO ONE (17:27)
[2021-11-28 17:33] LABS: Folate (Folic Acid) 6.66 ng/ml (>5.38)
[2021-11-28] MEDS: AZITHROMYCIN 500 MG in DEXTROSE 5% 250 ML IV SCH (17:56)
[2021-11-28] MEDS: FOLIC ACID 1 MG in SYRINGE 9.8 ML IV SCH (17:57)
[2021-11-28] MEDS: NICOTINE 21 MG/24 HR TDSY TD SCH (17:57)
[2021-11-28] MEDS: THIAMINE HCL 100 MG TAB PO SCH (17:58)
[2021-11-28] MEDS: POLYETHYLENE (MIRALAX) 17 GM PACK PO SCH (17:58)
[2021-11-28] MEDS: INSULIN ASPART PER UNIT SC SCH ×2 (18:11→20:28)
[2021-11-28] MEDS: Patient's HEIGHT &/or WEIGHT Needed SCH ×2 (19:09→19:28)
[2021-11-28] MEDS: ALBUT/IPRATROP 3MG/0.5MG NEB 3 ML VIAL INH SCH (19:46)
[2021-11-28] MEDS: LANTUS PER UNIT CHARGE SQ SCH (20:27)
[2021-11-28] MEDS: guaiFENesin 600 MG TABCR PO SCH (20:27)
[2021-11-29] MEDS: ALBUT/IPRATROP 3MG/0.5MG NEB 3 ML VIAL INH SCH ×4 (00:23→19:25)
[2021-11-29] MEDS ORDERED: LEVALBUTEROL HCL 0.63 MG/3 ML NEB NEB PRN (02:07)
[2021-11-29 02:19] LABS: Appearance Urine Clear (Clear); Bilirubin Urine Negative (Negative); Blood Urine Negative (Negative); Color Urine Yellow; Glucose Urine UA 3+ (Negative); Ketones Urine Negative (Negative); Leukocyte Esterase Urine Negative (Negative); Nitrite Urine Negative (Negative); Protein Urine Negative (Negative); Specific Gravity Urine 1.022 (1.000-1.030); Urobilinogen Urine Negative (Negative)
[2021-11-29 05:53] LABS: Basophils # (auto) 0.01 K/uL (0-0.2); Basophils % (auto) 0.1 %; Eosinophils # (auto) 0.01 K/uL (0-0.50); Eosinophils % (auto) 0.1 %; Hematocrit (blood only) 36.6 % (40.1-51.0); Immature Granulocytes # (auto) 0.13 K/uL (0.00-0.02); Immature Granulocytes % (auto) 1.3 %; Lymphocytes # (auto) 1.28 K/uL (1.2-3.4); Lymphocytes % (auto) 12.6 %; Mean Corpuscular Hemoglobin 34.9 pg (25.0-34.0); Mean Corpuscular Hgb Conc 35.5 g/dL (32.0-36.0); Mean Corpuscular Volume 98.1 fL (80.0-100.0); Mean Platelet Volume 9.8 fL (9.4-12.4); Monocytes % (auto) 4.9 %; Neutrophils # (auto) 8.24 K/uL (1.4-6.5); Platelet Count 256 K/uL (130-400); RDW Coefficient of Variation 13.1 % (11.5-14.5); RDW Standard Deviation 46.7 fL (36.4-46.3); Red Blood Count 3.73 M/uL (4.63-6.08); White Blood Count 10.17 K/ul (4.8-10.8)
[2021-11-29 06:26] LABS: Albumin Globulin Ratio 1.3 (0.9-2); Albumin Level 3.6 gm/dl (3.4-5.0); BUN Creatinine Ratio 18.1 (10-20); Bilirubin,Total 0.5 mg/dl (0.2-1.0); Calcium 8.7 mg/dl (8.5-10.1); Creatinine Clr Calc Pharmacy 90.8 ml/min; Est GFR (African American) 78.9 ml/min; Est GFR (Non-African American) 68.1 ml/min; Globulin 2.8 gm/dl (2.5-4.0); Potassium 4.1 mmol/L (3.5-5.1); Total Protein 6.4 gm/dl (6.0-8.3)
[2021-11-29 06:48] LABS: Estimated Average Glucose 180 mg/dl; Hemoglobin A1C 7.9 % (4.5-5.6)
[2021-11-29] MEDS: methylPREDNISolone 40 MG in SYRINGE 0 ML IV SCH ×2 (08:18→16:47)
[2021-11-29] MEDS: FOLIC ACID 1 MG in SYRINGE 9.8 ML IV SCH (08:18)
[2021-11-29] MEDS: guaiFENesin 600 MG TABCR PO SCH ×2 (08:18→20:49)
[2021-11-29] MEDS: FLUTICASONE FUROATE 100MCG 14 PUFFS/INHALER INH SCH (08:19)
[2021-11-29] MEDS: NICOTINE 21 MG/24 HR TDSY TD SCH (08:19)
[2021-11-29] MEDS: LISINOPRIL/HCTZ 20/25MG 1 TAB PO SCH (08:19)
[2021-11-29] MEDS: POLYETHYLENE (MIRALAX) 17 GM PACK PO SCH (08:21)
[2021-11-29] MEDS: ASPIRIN 81 MG ECTAB PO SCH (08:21)
[2021-11-29] MEDS: THIAMINE HCL 100 MG TAB PO SCH (08:22)
[2021-11-29] MEDS: LANTUS PER UNIT CHARGE SQ SCH ×2 (08:29→20:49)
[2021-11-29] MEDS: INSULIN ASPART PER UNIT SC SCH ×4 (08:29→20:50)
[2021-11-29] MEDS: UMECLIDINIUM/VILANTEROL 62.5/25MCG 7 PUFFS/INHALER INH SCH (08:34)
[2021-11-29] MEDS ORDERED: MoRPHine SULFATE 2 MG/ML CARP IV STA (12:03)
--- NOTE | 2021-11-29 14:02 | Hospitalist Progress Note ---
Date of Service November 29, 2021 Assessment & Plan (1) COPD (chronic obstructive pulmonary disease): Plan: Acute on chronic COPD versus mucous plugging - CT chest showed mucus plug Patient with improved wheezing following duonebs and steroids Continue Trelegy/formulary equivalent CTchest: Bibasilar mucous plugging, no pleural effusion or airspace consolidation, no acute fracture or pneumothorax Significant wheezing on exam Continue inhalers Scheduled nebs Azithromycin 500 mg x 3 days Incentive spirometry, flutter valve Guaifenesin twice daily Use percussion vest if not improving Type 2 DM A1c 7.6 at last PCP visit Patient was starting with dietary changes as outpatient, not yet on pharmacologic therapy Glucose checks AC/at bedtime, weight-based basal bolus while inpatient basal 12u BID, CF 35, Ratio 15 BMP daily Hyponatremia Mild, 134 In the setting of chronic alcohol use Improving from prior labs Alcohol abuse Last drink a.m. 12/25 Alcohol negative on admission No history of withdrawal/DTs Reports drinks 28 beers per day, has not had alcohol free day in some time DANIKA S protocol Hypertension Elevated in the setting of pain Continue lisinopril 20 mg, hydrochlorothiazide 25 mg daily Continue aspirin 1 mg morphine given for pain above Additional 10 mg labetalol given for acute hypertension Recheck pending DVT prophylaxis: Lovenox CODE STATUS: Full code Diet: heart healthy/MDM (2) Rib pain on left side: Plan: Right lower quadrant abdominal pain, most likely musculoskeletal -Patient said he fell on that side sometime ago -CT abdomen did not show any acute pathology (3) Impaired fasting glucose: (4) Obstructive sleep apnea: (5) COPD with respiratory distress, acute: Admission and Anticipated Discharge Date Admission Date: November 28, 2021 Subjective patient seen and examined, still complains of left lower quadrant abdominal pain and also persistent wheeze, although much improved Review of Systems Review of Systems: All systems reviewed are negative, apart from the ones contained in the history. Physical Exam Physical Exam: The patient is awake, alert and oriented 3, well developed and well nourished, normocephalic and atraumatic, lying in bed and in no acute distress. HEENT--PERRL, EOMI, mucous membranes and oropharynx mildly dry Neck--supple. No JVD. No bruits. Thyroid normal, trachea midline, no adenopathy. Heart--normal S1 and S2. No murmurs, rubs or gallops. Lungs--reduced air entry, bibasilar wheeze Abdomen--normal bowel sounds and soft. Mild epigastric and left sided abdominal pain Extremities--no cyanosis or clubbing. No edema. Dermatologic--normal skin turgor, normal color, no abnormal lymph nodes, no rash. Neurologic--cranial nerves II through XII grossly intact. Rheumatologic--normal range of motion. Psychiatric--normal affect. Results & Data Results & Data ([facility]) Vital Signs (Past 12 Hours) Vital Signs Temp Pulse Pulse Resp BP Pulse Ox O2 Del Method 11/29/21 12:35 115 H 18 96 Nasal Cannula 11/29/21 09:35 Nasal Cannula 11/29/21 08:03 98.8 F 122 H 16 149/81 H 89 L Nasal Cannula 11/29/21 07:25 115 H 22 86 L Room Air 11/29/21 06:55 105 H 11/29/21 03:56 98.8 F 110 H 20 155/96 H 95 CPAP 11/29/21 02:05 138 H 30 H 83 L Room Air, BiPAP 11/29/21 02:17 135 H 26 H 93 O2 Flow Rate FiO2 11/29/21 12:35 3 11/29/21 09:35 3 11/29/21 08:03 2 11/29/21 07:25 11/29/21 06:55 11/29/21 03:56 11/29/21 02:05 21 11/29/21 02:17 3 PG Care Time/CCT Total # of Minutes Spent Total Time Spent with Patient: Total time spent is greater than 50% in coordination of care (as documented) at patient's floor/unit and/or counseling patient: Coding Level of Care Code 01731 Subseq Hosp Care Lvl 2 Diagnoses COPD (chronic obstructive pulmonary disease) J44.9 Rib pain on left side R07.81 Impaired fasting glucose R73.01 Obstructive sleep apnea G47.33 COPD with respiratory distress, acute J44.1 Time Spent (min) 35
[2021-11-29] MEDS: AZITHROMYCIN 500 MG in DEXTROSE 5% 250 ML IV SCH (16:47)
[2021-11-30] MEDS: ALBUT/IPRATROP 3MG/0.5MG NEB 3 ML VIAL INH SCH ×5 (00:19→20:00)
[2021-11-30] MEDS: methylPREDNISolone 40 MG in SYRINGE 0 ML IV SCH ×3 (01:06→19:51)
[2021-11-30] MEDS ORDERED: HYDROcodone/HOMATROPINE SYRUP 5MG/1.5MG 5ML UDP PO STA (06:54)
[2021-11-30] MEDS: LANTUS PER UNIT CHARGE SQ SCH (08:21)
[2021-11-30] MEDS: INSULIN ASPART PER UNIT SC SCH ×4 (08:21→20:40)
[2021-11-30] MEDS: FOLIC ACID 1 MG in SYRINGE 9.8 ML IV SCH (08:58)
[2021-11-30] MEDS: FLUTICASONE FUROATE 100MCG 14 PUFFS/INHALER INH SCH (08:59)
[2021-11-30] MEDS: UMECLIDINIUM/VILANTEROL 62.5/25MCG 7 PUFFS/INHALER INH SCH (08:59)
[2021-11-30] MEDS: NICOTINE 21 MG/24 HR TDSY TD SCH (09:01)
[2021-11-30] MEDS: ASPIRIN 81 MG ECTAB PO SCH (09:45)
[2021-11-30] MEDS: THIAMINE HCL 100 MG TAB PO SCH (09:45)
[2021-11-30] MEDS: LISINOPRIL/HCTZ 20/25MG 1 TAB PO SCH (09:45)
[2021-11-30] MEDS: guaiFENesin 600 MG TABCR PO SCH ×2 (09:45→19:48)
[2021-11-30] MEDS: POLYETHYLENE (MIRALAX) 17 GM PACK PO SCH (09:45)
[2021-11-30] MEDS ORDERED: guaiFENesin/DEXTROM SYRUP 200MG/20MG 10ML UDC PO PRN (11:23)
[2021-11-30] MEDS ORDERED: PHARMACY GLYCEMIC MGMT CONSULT PRN (13:35)
[2021-11-30] MEDS ORDERED: SODIUM CHLORIDE 0.9% 500 ML IV SCH (13:45)
--- NOTE | 2021-11-30 13:45 | Communication Note ---
Date of Service: November 30, 2021 Code cheryl called ~1300hrs. on arrival patient is sitting up in bed receiving nebulizer treatment. By report patient was undergoing a echo and was turned on his side his bed when he suddenly had an episode of shaking and hypoxia <88%. On bedside assessment patient is sitting up, clinically improving. Lung auscultation is diffusely wheezy and tight, patient does feel he is improving on nebulizer treatment. SPO2 while undergoing nebulizer 96%. Patient is tachycardic to [id number], regular. Echo was able to be completed, on review of cardiology shows hyperdynamic left ventricle with preserved function, no evidence of volume overload or increased right-sided pressure. BSG 339 at [id number]. 500 cc fluid ordered, SSI scale ordered to be given to bring BSG down and patient to be given additional nebulizer and the methylprednisolone 40 mg he was due for at noon but had not yet gotten. CBC/BMP/Trope/mag/Phos were ordered and pending. Clinically improving following above, transferred to PCU for close monitoring. Signout/update given to attending hospitalist Dr. Messina by wicho.
[2021-11-30 14:01] LABS: Basophils # (auto) 0.02 K/uL (0-0.2); Basophils % (auto) 0.1 %; Hematocrit (blood only) 39.6 % (40.1-51.0); Hemoglobin 13.6 g/dl (14.0-18.0); Immature Granulocytes # (auto) 0.23 K/uL (0.00-0.02); Immature Granulocytes % (auto) 1.5 %; Lymphocytes # (auto) 1.05 K/uL (1.2-3.4); Lymphocytes % (auto) 6.9 %; Mean Corpuscular Hemoglobin 34.9 pg (25.0-34.0); Mean Corpuscular Hgb Conc 34.3 g/dL (32.0-36.0); Mean Corpuscular Volume 101.5 fL (80.0-100.0); Monocytes % (auto) 2.6 %; Neutrophils # (auto) 13.41 K/uL (1.4-6.5); Neutrophils % (auto) 88.9 %; Platelet Count 328 K/uL (130-400); RDW Coefficient of Variation 13.2 % (11.5-14.5); RDW Standard Deviation 48.7 fL (36.4-46.3); White Blood Count 15.11 K/ul (4.8-10.8)
[2021-11-30] MEDS ORDERED: INSULIN HUMAN REGULAR PER UNIT 10 UNITS in SYRINGE 9.9 ML IV ONE (14:15)
[2021-11-30] MEDS ORDERED: LANTUS PER UNIT CHARGE SQ ONE (14:15)
[2021-11-30 14:16] LABS: Albumin Globulin Ratio 1.3 (0.9-2); Albumin Level 4.1 gm/dl (3.4-5.0); BUN Creatinine Ratio 18.9 (10-20); Bilirubin,Total 0.5 mg/dl (0.2-1.0); Calcium 9.1 mg/dl (8.5-10.1); Creatinine Clr Calc Pharmacy 55.2 ml/min; Est GFR (African American) 43.4 ml/min; Est GFR (Non-African American) 37.5 ml/min; Globulin 3.2 gm/dl (2.5-4.0); Phosphorus 4.7 mg/dl (2.5-4.9); Potassium 4.3 mmol/L (3.5-5.1); Total Protein 7.3 gm/dl (6.0-8.3)
[2021-11-30 14:21] LABS: Troponin I High Sensitivity 17.4 pg/ml (0-20)
--- NOTE | 2021-11-30 15:12 | Hospitalist Progress Note ---
Date of Service November 30, 2021 Assessment & Plan (1) COPD (chronic obstructive pulmonary disease): Plan: Acute on chronic COPD versus mucous plugging - CT chest showed mucus plug Patient with improved wheezing following duonebs and steroids Continue Trelegy/formulary equivalent CTchest: Bibasilar mucous plugging, no pleural effusion or airspace consolidation, no acute fracture or pneumothorax Significant wheezing on exam Continue inhalers Scheduled nebs Azithromycin 500 mg x 3 days Incentive spirometry, flutter valve Guaifenesin twice daily Use percussion vest if not improving Questionable syncope and desaturation: -Patient has been having episodes of desaturation, especially after having bouts of coughing -He describes it as passing out. -His oxygen level desaturates, and as happened during code purple today -This could be due to mucus plugs -2 D ECHO was done to r/o any structural heart issues -Will consult Pulmonology, may need bronchoscopy Type 2 DM A1c 7.6 at last PCP visit Patient was starting with dietary changes as outpatient, not yet on pharmacologic therapy Glucose checks AC/at bedtime, weight-based basal bolus while inpatient basal 12u BID, CF 35, Ratio 15 BMP daily Hyponatremia Mild, 134 In the setting of chronic alcohol use Improving from prior labs Alcohol abuse Last drink a.m. 12/25 Alcohol negative on admission No history of withdrawal/DTs Reports drinks 28 beers per day, has not had alcohol free day in some time DANIKA S protocol Hypertension Now under better control Continue lisinopril 20 mg, hydrochlorothiazide 25 mg daily Continue aspirin 1 mg morphine given for pain above Additional 10 mg labetalol given for acute hypertension Recheck pending DVT prophylaxis: Lovenox CODE STATUS: Full code Diet: heart healthy/MDM (2) Rib pain on left side: Plan: Right lower quadrant abdominal pain, most likely musculoskeletal -Patient said he fell on that side sometime ago -CT abdomen did not show any acute pathology (3) Impaired fasting glucose: (4) Obstructive sleep apnea: (5) COPD with respiratory distress, acute: Admission and Anticipated Discharge Date Admission Date: November 28, 2021 Subjective patient seen and examined, still complains of left lower quadrant abdominal pain and also persistent wheeze, although much improved. code purple was called earlier for desaturation Review of Systems Review of Systems: All systems reviewed are negative, apart from the ones contained in the history. Physical Exam Physical Exam: The patient is awake, alert and oriented 3, well developed and well nourished, normocephalic and atraumatic, lying in bed and in no acute distress. HEENT--PERRL, EOMI, mucous membranes and oropharynx mildly dry Neck--supple. No JVD. No bruits. Thyroid normal, trachea midline, no adenopathy. Heart--normal S1 and S2. No murmurs, rubs or gallops. Lungs--reduced air entry, bibasilar wheeze Abdomen--normal bowel sounds and soft. Mild epigastric and left sided abdominal pain Extremities--no cyanosis or clubbing. No edema. Dermatologic--normal skin turgor, normal color, no abnormal lymph nodes, no rash. Neurologic--cranial nerves II through XII grossly intact. Rheumatologic--normal range of motion. Psychiatric--normal affect. Results & Data Results & Data ([facility]) Vital Signs (Past 12 Hours) Vital Signs Temp Pulse Pulse Resp BP BP Pulse Ox 11/30/21 13:50 97.9 F 130 H 24 144/82 H 93 11/30/21 13:48 140 H 28 H 94 11/30/21 12:15 97.9 F 117 H 19 149/72 H 93 11/30/21 07:30 11/30/21 08:18 98.1 F 108 H 18 157/84 H 93 11/30/21 07:00 120 H 11/30/21 06:40 98.6 F 124 H 22 176/43 H 93 11/30/21 06:18 117 H 22 94 11/30/21 06:10 124 H 22 140/52 L 94 O2 Del Method O2 Flow Rate 11/30/21 13:50 Nasal Cannula 4 11/30/21 13:48 Nasal Cannula 6 11/30/21 12:15 4 11/30/21 07:30 Nasal Cannula 4 11/30/21 08:18 Nasal Cannula 5 11/30/21 07:00 11/30/21 06:40 Nasal Cannula 4 11/30/21 06:18 Nasal Cannula 2 11/30/21 06:10 4 PG Care Time/CCT Total # of Minutes Spent Total Time Spent with Patient: Total time spent is greater than 50% in coordination of care (as documented) at patient's floor/unit and/or counseling patient: Coding Level of Care Code 58000 Subseq Hosp Care Lvl 2 Diagnoses COPD (chronic obstructive pulmonary disease) J44.9 Rib pain on left side R07.81 Impaired fasting glucose R73.01 Obstructive sleep apnea G47.33 COPD with respiratory distress, acute J44.1 Time Spent (min) 35
--- NOTE | 2021-11-30 15:15 | XCELERA ---
[id number]
--- NOTE | 2021-11-30 16:14 | Pulmonary Consultation ---
Date of Consultation November 30, 2021 Assessment & Plan (1) Acute hypoxemic respiratory failure: Secondary to asthma/COPD exacerbation. Wean oxygen as able. Maintain sats 88 to 92%. Continue CPAP at night for CAROLYN. (2) Reactive airway disease with acute exacerbation: Continue albuterol and ipratropium nebs. We will transition the Breo and Incruse Ellipta inhalers to Brovana and budesonide. Transition to Trelegy on discharge. Strongly encouraged complete smoking cessation. Will need PFTs as an outpatient. Possible allergic component to symptoms. We will start Singulair. Lisinopril to be discontinued as this can cause cough. We will start low-dose carvedilol instead which is a cardioselective beta-ila and should not exacerbate asthma. Wean steroids over the course of the next day or 2. Will decrease Solumedrol to BID dosing for today and tomorrow. Appears to be in DKA likely due to acute exacerbation of asthma/COPD and steroid use. (3) DKA (diabetic ketoacidosis): Mild DKA. See above. Recommend IV fluid hydration and tighter control of glucose. (4) Hypertension: As above, will change lisinopril to carvedilol. Echo with grade 1DD. (5) JESSE (acute kidney injury): JESSE secondary to DKA. DIAMOND-I discontinued. Fluids to be managed by primary team. History of Present Illness Reason for Consultation: COPD exacerbation Attending Physician: Max Messina MD History of Present Illness 61-year-old male with a past medical history of obesity, hypertension, type 2 diabetes, tobacco abuse, alcohol abuse, chronic reflux, CAROLYN and lacunar infarct presenting to the hospital due to increasing abdominal pain. He noted constipation for the past week. He smokes roughly 1.5 to 2.5 packs of cigarettes per day. He was on BiPAP earlier yesterday and today. He was started on steroids antibiotics by the hospitalist team for COPD exacerbation. He was also given MiraLAX. Earlier today he had a bout of desaturation and presyncope symptoms during an echocardiogram. Mild leukocytosis is seen today likely due to demargination from steroids. Lymphopenia noted. Creatinine elevated to 1.90. Glucose has been elevated to 338. No procalcitonin available for review. Patient currently on azithromycin and Solu-Medrol 40 mg 3 times daily. He is currently saturating 94% on 4 L. Heart rate in the 120s. Appears mildly anxious. Mild abdominal pain from where he fell. No nausea or vomiting. Occasional cough that is productive of sputum. Denies hemoptysis. No fevers or chills. CT of the chest obtained today. Study is very degraded due to respiratory motion artifact. No significant emphysema noted. Tiny left upper lobe subcentimeter nodule. Radiology notes mucus plugging at the bases. I see no significant evidence of mucous plugging. No infiltrate seen. Mild mosaicism noted in the bases. Allergies Allergy/AdvReac Type Severity Reaction Status Date / Time No Known Allergies Allergy NONE Verified 11/28/21 09:26 Home Medications Medication Instructions Recorded Confirmed Type aspirin 81 mg tablet,delayed 81 mg PO DAILY 08/31/19 11/28/21 History release fluticasone fur. 100 mcg-umeclid 1 inh inhalation DAILY #60 ea 02/23/21 11/28/21 Rx 62.5 mcg-vilant 25 mcg inhalat.powder (Trelegy Ellipta) levalbuterol HCl 0.31 mg/3 mL See Rx Instructions .Route 05/04/21 11/28/21 Rx solution for nebulization .COMPLEX #540 mL lisinopril 20 1 tab PO DAILY #90 tabs 05/04/21 11/28/21 Rx mg-hydrochlorothiazide 25 mg tablet nicotine 14 mg/24 hr daily 1 patch transdermal DAILY #28 ea 05/04/21 11/28/21 Rx transdermal patch nicotine 7 mg/24 hr daily 1 patch transdermal Q24H #28 ea 05/04/21 11/28/21 Rx transdermal patch cyclobenzaprine 10 mg tablet 10 mg PO TID PRN muscle spasm #14 05/25/21 11/28/21 Rx tabs blood sugar diagnostic (Blood #50 ea 09/03/21 11/28/21 Rx Glucose Test strips) blood-glucose meter #1 ea 09/03/21 11/28/21 Rx buspirone 15 mg tablet 15 mg PO TID PRN anxiety #60 tabs 09/03/21 11/28/21 Rx varenicline 1 mg tablet 1 mg PO BID #180 tabs 10/08/21 11/28/21 Rx albuterol sulfate 90 mcg/actuation 2 puff inhalation .COMPLEX PRN 10/30/21 11/28/21 Rx aerosol inhaler shortness of breath or wheezing #18 grams lancets 26 gauge #100 ea 11/28/21 11/28/21 Rx Patient History Medical History (Updated 11/30/21 @ 16:42 by Dima Gonsalves MD) Acute hypoxemic respiratory failure JESSE (acute kidney injury) Alcohol abuse, in remission COPD (chronic obstructive pulmonary disease) DKA (diabetic ketoacidosis) Encounter for immunization Essential hypertension Hypertension Loss of consciousness Mixed hyperlipidemia Nondisplaced fracture of left great toe Obesity Reactive airway disease with acute exacerbation Routine health maintenance Syncope Unresponsive episode Surgical History History of hernia repair History of incision and drainage of skin abscess, simple History of vasectomy Family History Mother Hypertension Myocardial infarction Diabetes Stroke Father Myocardial infarction Hyperlipemia Colorectal cancer Denies family history of Ovarian cancer Prostate cancer Breast cancer Social History Smoking Status: Current every day smoker packs per day: 0.5; Cigarettes Per Day: 15; Second Hand Exposure: No; Do You Dip or Chew Tobacco: No; Tobacco Cessation Education Requested by Patient: No Hx Alcohol Use: Yes Alcohol type: beer Alcohol Intake Frequency: 4 or More x per/Week Hx Substance Use: No Preferred Language: Urdu Communication Ability: Effective Statistical Methods Teacher Required: No Beliefs That Will Affect Care: None marital status: Current Living Situation: Alone current occupational status: retired Other Information That Helps Us Care for You: No Feels Safe at Home: Yes Safety Concerns: Feels Safe At This Time Dental Care, Regularly: Yes Seatbelt Use: never Sunscreen Use: No Assistive Devices: Glasses Review of Systems Review of Systems: All systems reviewed & are unremarkable except as noted in HPI & below Physical Exam Physical Exam: Constitutional: Patient appears to be of their stated age. Patient is in no apparent distress. Patient is well-developed. Eyes: Pupils are equal round and reactive to light. Conjunctivae are normal. Anicteric sclera. Ears nose, mouth and throat:Deferred Neck: Trachea is midline. Visual inspection is normal. Respiratory: Barrel chested. Mild expiratory wheeze. No significant tachypnea. Cardiovascular: Regular rate and rhythm. No murmurs. No edema. Gastrointestinal: Normal bowel sounds, soft, nontender and nondistended. No hepatosplenomegaly noted. Musculoskeletal: No cyanosis. Patient is able to move all extremities. Skin: No rashes, warm dry and intact. Neurologic: No obvious focal neurological deficits seen. Psychiatric: Alert and oriented x3 with a euthymic affect. Results & Data Results & Data ([facility]) Vital Signs (Past 12 Hours) Vital Signs Temp Pulse Pulse Resp BP BP Pulse Ox 11/30/21 16:00 11/30/21 15:19 125 H 11/30/21 15:11 11/30/21 13:50 36.6 C 130 H 24 144/82 H 93 11/30/21 13:48 140 H 28 H 94 11/30/21 12:15 36.6 C 117 H 19 149/72 H 93 11/30/21 07:30 11/30/21 08:18 36.7 C 108 H 18 157/84 H 93 11/30/21 07:00 120 H 11/30/21 06:40 37 C 124 H 22 176/43 H 93 11/30/21 06:18 117 H 22 94 11/30/21 06:10 124 H 22 140/52 L 94 Pulse Ox O2 Del Method O2 Del Method O2 Flow Rate O2 Flow Rate 11/30/21 16:00 94 Nasal Cannula 4 11/30/21 15:19 11/30/21 15:11 Nasal Cannula 4 11/30/21 13:50 Nasal Cannula 4 11/30/21 13:48 Nasal Cannula 6 11/30/21 12:15 4 11/30/21 07:30 Nasal Cannula 4 11/30/21 08:18 Nasal Cannula 5 11/30/21 07:00 11/30/21 06:40 Nasal Cannula 4 11/30/21 06:18 Nasal Cannula 2 11/30/21 06:10 4 PG Care Time/CCT Total # of Minutes Spent Total Time Spent with Patient: Total time spent is greater than 50% in coordination of care (as documented) at patient's floor/unit and/or counseling patient: Coding Level of Care Code 86208 Inpt Consult Level 5 Diagnoses Acute hypoxemic respiratory failure J96.01 Reactive airway disease with acute exacerbation J45.901 DKA (diabetic ketoacidosis) E11.10 Hypertension I10 JESSE (acute kidney injury) N17.9
[2021-11-30] MEDS: AZITHROMYCIN 500 MG in DEXTROSE 5% 250 ML IV SCH (17:07)
[2021-11-30] MEDS: carvediloL 3.125 MG TAB PO SCH (19:49)
[2021-11-30] MEDS: MONTELUKAST SODIUM 10 MG TABLET PO SCH (19:49)
[2021-11-30] MEDS: BUDESONIDE 0.5 MG/2 ML VIAL (PULMICORT) NEB SCH (20:00)
[2021-11-30] MEDS: FORMOTEROL 20 MCG/2 ML VIAL INH SCH (20:00)
[2021-12-01] MEDS: ALBUT/IPRATROP 3MG/0.5MG NEB 3 ML VIAL INH SCH ×5 (00:09→19:32)
[2021-12-01] MEDS: INSULIN ASPART PER UNIT SC SCH ×6 (00:42→20:19)
[2021-12-01] MEDS ORDERED: LORazepam 1 MG in SYRINGE 0.5 ML IV STA (00:58)
[2021-12-01] MEDS: BUDESONIDE 0.5 MG/2 ML VIAL (PULMICORT) NEB SCH ×2 (07:26→19:27)
[2021-12-01] MEDS: FORMOTEROL 20 MCG/2 ML VIAL INH SCH ×2 (07:26→19:27)
[2021-12-01] MEDS: FOLIC ACID 1 MG in SYRINGE 9.8 ML IV SCH (07:51)
[2021-12-01] MEDS: methylPREDNISolone 40 MG in SYRINGE 0 ML IV SCH (07:51)
[2021-12-01] MEDS: NICOTINE 21 MG/24 HR TDSY TD SCH (07:51)
[2021-12-01] MEDS: carvediloL 3.125 MG TAB PO SCH ×2 (07:52→20:24)
[2021-12-01] MEDS: THIAMINE HCL 100 MG TAB PO SCH (07:52)
[2021-12-01] MEDS: guaiFENesin 600 MG TABCR PO SCH ×2 (07:53→20:24)
[2021-12-01] MEDS: ASPIRIN 81 MG ECTAB PO SCH (07:53)
--- NOTE | 2021-12-01 09:22 | Electrocardiogram Report ---
Test Reason : Blood Pressure : / mmHG Vent. Rate : 096 BPM Atrial Rate : 096 BPM P-R Int : 160 ms QRS Dur : 072 ms QT Int : 354 ms P-R-T Axes : 066 042 058 degrees QTc Int : 447 ms Normal sinus rhythm Normal ECG When compared with ECG of 28-NOV-2021 12:08, No significant change was found Confirmed by Nasir Hilario ([id number]) on 12/01/2021 9:22:24 AM Referred By: REFERRED SELF Confirmed By:Nasir Hilario
[2021-12-01] MEDS: POLYETHYLENE (MIRALAX) 17 GM PACK PO SCH (09:50)
[2021-12-01] MEDS ORDERED: LANTUS PER UNIT CHARGE SQ SCH (10:45)
--- NOTE | 2021-12-01 10:48 | Pharmacy Report ---
Pharmacy Glycemic Short Note 2 - Date of Service December 01, 2021 - Glycemic Short BSG Results (Last 24 hours): 11/30/21 11/30/21 11/30/21 12:01 12:03 13:25 Glucose POC Glucose 316 H* 349 H* 338 H* 11/30/21 11/30/21 11/30/21 13:27 16:59 20:02 Glucose 300 H POC Glucose 184 H 213 H 12/01/21 12/01/21 12/01/21 00:22 03:04 07:35 Glucose POC Glucose 128 H 181 H 134 H OUTPATIENT ANTIDIABETIC REGIMEN: * None * HbA1c = 7.9% (11/29/21) ASSESSMENT: * 61 yo M admitted on 11/28/21 secondary to an acute exacerbation of COPD. Pharmacy was consulted on 11/30/21 secondary to hyperglycemia to assist with inpatient diabetes management. Patient's main stressor is steroid use: Solumedrol reduced to 40 mg IV twice daily starting today. Also on azithromycin. Ordered and tolerating a type 2 diabetic diet. * BSG at lunchtime yesterday was 349 mg/dL prompting consult. Patient given 30 extra units of Lantus and 10 unit bolus IV at that time. BSGs trended down nicely last evenin-213-128 mg/dL. Overnight check was 181 mg/dL. * Fasting BSG was 134 mg/dL this AM - controlled. Patient received 42 units of basal yesterday which was an approximate 70% increase from the previous day. This reduced the fasting BSG by almost half in one day. Therefore, will reduce basal today to prevent hypoglycemia tomorrow. No changes to Novolog. PLAN FOR INPATIENT GLYCEMIC CONTROL: * Basal insulin * Lantus 30 units SC daily * Bolus insulin * NovoLog per scale ACHS or Q6hrs while NPO * Goal Range: Low 110 mg/dL - High 140 mg/dL * Correction Factor: 20 mg/dL/unit * Nutritional / Prandial insulin per carb ratio of 1 unit per 6 grams CHO consumed
--- NOTE | 2021-12-01 14:52 | Pulmonology Progress Note ---
Date of Service December 01, 2021 Assessment & Plan (1) Acute hypoxemic respiratory failure: Plan: Secondary to asthma/COPD exacerbation. Wean oxygen as able. Maintain sats 88 to 92%. Continue CPAP at night for CAROLYN. (2) Reactive airway disease with acute exacerbation: Plan: Continue albuterol and ipratropium nebs. Continue Brovana and budesonide. Transition to Trelegy on discharge. Strongly encouraged complete smoking cessation. Will need PFTs as an outpatient. Possible allergic component to symptoms. Continue Singulair. Transition to oral prednisone at a dose of 40 mg daily starting tomorrow. Recommend taper over the next 10 days. (3) Hypertension: Plan: Lisinopril changed to carvedilol yesterday. May need to add an ARB due to history of diabetes. Would avoid DIAMOND inhibitor due to cough. (4) JESSE (acute kidney injury): Plan: Patient had evidence of DKA and JESSE yesterday. Recommend repeating labs today. Admission and Anticipated Discharge Date Admission Date: November 28, 2021 Subjective Patient seen and examined. Feeling much better from a shortness of breath standpoint. Minimal cough. No fevers or chills. Continues to require oxygen to maintain sats. Review of Systems Review of Systems: All systems reviewed & are unremarkable except as noted in HPI & below Physical Exam Physical Exam: Constitutional: Patient appears to be of their stated age. Patient is in no apparent distress. Patient is well-developed. Eyes: Pupils are equal round and reactive to light. Conjunctivae are normal. Anicteric sclera. Ears nose, mouth and throat:Deferred Neck: Trachea is midline. Visual inspection is normal. Respiratory: Barrel chested. Mild expiratory wheeze. No significant tachypnea. Cardiovascular: Regular rate and rhythm. No murmurs. No edema. Gastrointestinal: Normal bowel sounds, soft, nontender and nondistended. No hepatosplenomegaly noted. Musculoskeletal: No cyanosis. Patient is able to move all extremities. Skin: No rashes, warm dry and intact. Neurologic: No obvious focal neurological deficits seen. Psychiatric: Alert and oriented x3 with a euthymic affect. Results & Data Results & Data ([facility]) Vital Signs (Past 12 Hours) Vital Signs Temp Pulse Pulse Resp BP Pulse Ox Pulse Ox 12/01/21 12:46 99 H 20 94 12/01/21 11:00 36.2 C L 102 H 18 134/87 12/01/21 08:00 12/01/21 08:00 94 12/01/21 07:29 101 H 18 95 12/01/21 07:23 89 12/01/21 03:01 35.7 C L 100 H 18 141/92 H 98 O2 Del Method O2 Del Method O2 Flow Rate O2 Flow Rate 12/01/21 12:46 Nasal Cannula 3 12/01/21 11:00 12/01/21 08:00 Nasal Cannula 3 12/01/21 08:00 Nasal Cannula 3 12/01/21 07:29 Nasal Cannula 3 12/01/21 07:23 12/01/21 03:01 CPAP PG Care Time/CCT Total # of Minutes Spent Total Time Spent with Patient: Total time spent is greater than 50% in coordination of care (as documented) at patient's floor/unit and/or counseling patient: Coding Level of Care Code 17182 Subseq Hosp Care Lvl 2 Diagnoses Acute hypoxemic respiratory failure J96.01 Reactive airway disease with acute exacerbation J45.901 Hypertension I10 JESSE (acute kidney injury) N17.9
--- NOTE | 2021-12-01 15:17 | Hospitalist Progress Note ---
Date of Service December 01, 2021 Assessment & Plan (1) COPD (chronic obstructive pulmonary disease): Plan: Acute on chronic COPD versus mucous plugging - CT chest showed mucus plug Patient with improved wheezing following duonebs and steroids CTchest: Bibasilar mucous plugging, no pleural effusion or airspace consolidation, no acute fracture or pneumothorax Significant wheezing on exam Azithromycin 500 mg x 3 days Incentive spirometry, flutter valve Guaifenesin twice daily Use percussion vest if not improving -Per Pulmonology Continue albuterol and ipratropium nebs, Continue Brovana and budesonide. - Transition to Trelegy on discharge. -Strongly encouraged complete smoking cessation. -Will need PFTs as an outpatient. Possible allergic component to symptoms. Continue Singulair. Questionable syncope and desaturation: -Patient has been having episodes of desaturation, especially after having bouts of coughing -He describes it as passing out. -His oxygen level desaturates, and as happened during code purple today -This could be due to mucus plugs -2 D ECHO was done to r/o any structural heart issues -Will consult Pulmonology, may need bronchoscopy Type 2 DM A1c 7.6 at last PCP visit Patient was starting with dietary changes as outpatient, not yet on pharmacologic therapy Glucose checks AC/at bedtime, weight-based basal bolus while inpatient basal 12u BID, CF 35, Ratio 15 BMP daily Hyponatremia In the setting of chronic alcohol use Improving from prior labs Alcohol abuse Last drink a.m. 12/25 Alcohol negative on admission No history of withdrawal/DTs Reports drinks 28 beers per day, has not had alcohol free day in some time DANIKA S protocol Hypertension Now under better control Stop lisinopril as it may worsen cough, continue hydrochlorothiazide 25 mg daily -Add carvedilol and ARB upon discharge Continue aspirin DVT prophylaxis: Lovenox CODE STATUS: Full code Diet: heart healthy/MDM (2) Rib pain on left side: Plan: Right lower quadrant abdominal pain, most likely musculoskeletal -Patient said he fell on that side sometime ago -CT abdomen did not show any acute pathology (3) Impaired fasting glucose: (4) Obstructive sleep apnea: (5) COPD with respiratory distress, acute: Admission and Anticipated Discharge Date Admission Date: November 28, 2021 Subjective patient seen and examined today, sob is better, seems a little anxious Review of Systems Review of Systems: All systems reviewed are negative, apart from the ones contained in the history. Physical Exam Physical Exam: The patient is awake, alert and oriented 3, well developed and well nourished, normocephalic and atraumatic, lying in bed and in no acute distress. HEENT--PERRL, EOMI, mucous membranes and oropharynx mildly dry Neck--supple. No JVD. No bruits. Thyroid normal, trachea midline, no adenopathy. Heart--normal S1 and S2. No murmurs, rubs or gallops. Lungs--reduced air entry, bibasilar wheeze Abdomen--normal bowel sounds and soft. Mild epigastric and left sided abdominal pain Extremities--no cyanosis or clubbing. No edema. Dermatologic--normal skin turgor, normal color, no abnormal lymph nodes, no rash. Neurologic--cranial nerves II through XII grossly intact. Rheumatologic--normal range of motion. Psychiatric--normal affect. Results & Data Results & Data ([facility]) Vital Signs (Past 12 Hours) Vital Signs Temp Pulse Pulse Resp BP Pulse Ox Pulse Ox 12/01/21 12:46 99 H 20 94 12/01/21 11:00 97.2 F L 102 H 18 134/87 12/01/21 08:00 12/01/21 08:00 94 12/01/21 07:29 101 H 18 95 12/01/21 07:23 89 O2 Del Method O2 Del Method O2 Flow Rate O2 Flow Rate 12/01/21 12:46 Nasal Cannula 3 12/01/21 11:00 12/01/21 08:00 Nasal Cannula 3 12/01/21 08:00 Nasal Cannula 3 12/01/21 07:29 Nasal Cannula 3 12/01/21 07:23 PG Care Time/CCT Total # of Minutes Spent Total Time Spent with Patient: Total time spent is greater than 50% in coordination of care (as documented) at patient's floor/unit and/or counseling patient: Coding Level of Care Code 96665 Subseq Hosp Care Lvl 2 Diagnoses COPD (chronic obstructive pulmonary disease) J44.9 Rib pain on left side R07.81 Impaired fasting glucose R73.01 Obstructive sleep apnea G47.33 COPD with respiratory distress, acute J44.1 Time Spent (min) 35
[2021-12-01] MEDS: MONTELUKAST SODIUM 10 MG TABLET PO SCH (20:25)
[2021-12-02] MEDS: ALBUT/IPRATROP 3MG/0.5MG NEB 3 ML VIAL INH SCH ×3 (00:01→11:46)
[2021-12-02 07:09] LABS: Hematocrit (blood only) 41.6 % (40.1-51.0); Hemoglobin 14.5 g/dl (14.0-18.0); Mean Corpuscular Hemoglobin 34.9 pg (25.0-34.0); Mean Corpuscular Hgb Conc 34.9 g/dL (32.0-36.0); Mean Platelet Volume 9.2 fL (9.4-12.4); Platelet Count 302 K/uL (130-400); RDW Standard Deviation 47.6 fL (36.4-46.3); Red Blood Count 4.16 M/uL (4.63-6.08); White Blood Count 11.43 K/ul (4.8-10.8)
[2021-12-02] MEDS: FORMOTEROL 20 MCG/2 ML VIAL INH SCH (07:33)
[2021-12-02] MEDS: BUDESONIDE 0.5 MG/2 ML VIAL (PULMICORT) NEB SCH (07:33)
[2021-12-02 07:49] LABS: BUN Creatinine Ratio 24.5 (10-20); Calcium 8.8 mg/dl (8.5-10.1); Creatinine Clr Calc Pharmacy 62.8 ml/min; Est GFR (African American) 57.4 ml/min; Est GFR (Non-African American) 49.5 ml/min
[2021-12-02] MEDS: POLYETHYLENE (MIRALAX) 17 GM PACK PO SCH (08:09)
[2021-12-02] MEDS: FOLIC ACID 1 MG in SYRINGE 9.8 ML IV SCH (08:09)
[2021-12-02] MEDS: carvediloL 3.125 MG TAB PO SCH (08:10)
[2021-12-02] MEDS: guaiFENesin 600 MG TABCR PO SCH (08:10)
[2021-12-02] MEDS: ASPIRIN 81 MG ECTAB PO SCH (08:11)
[2021-12-02] MEDS: THIAMINE HCL 100 MG TAB PO SCH (08:11)
[2021-12-02] MEDS: NICOTINE 21 MG/24 HR TDSY TD SCH (08:12)
[2021-12-02] MEDS: INSULIN ASPART PER UNIT SC SCH ×2 (08:20→11:59)
[2021-12-02] MEDS ORDERED: predniSONE 20 MG TAB PO SCH (09:00)
[2021-12-02] MEDS ORDERED: LANTUS PER UNIT CHARGE SQ SCH (09:00)
[2021-12-02] MEDS ORDERED: Nursing to Pharmacy Communication SCH (12:45)
--- NOTE | 2021-12-02 13:32 | Discharge Summary ---
Date of Service December 02, 2021 Admission HPI Per Admitting Provider Cal is a 61-year-old male with a past medical history of obesity, hypertension, type 2 diabetes, tobacco abuse, COPD, alcohol abuse, chronic reflux esophagitis, CAROLYN, and lacunar stroke who presented to the ER with left flank/abdominal pain of 3-4 days. Reports he had a fall at that time, a joke on a pretzel, and was drinking alcohol at that time. Denies history of withdrawal syndrome, but has not gone for more than a day without alcohol use in "a long time ". Last drink this morning. Esteban is seen in the ER at bedside. Reports he initially came in for left abdominal pain which is worsening over the last week after he had a fall. Notes that he has not had a bowel movement in over a week other than a very small 1 today. Pain does not radiate and is in the left upper quadrant slightly off to 1 side by his rib. Does feel his belly is a little bit more bloated than normal. Denies bright red blood per rectum/melena. Reports he has been wheezing more in the last day or 2, although notes this is not what actually brought him in. Comfortable on BiPAP, denies shortness of breath at time of bedside visit. He reports that on arrival to ER he did feel short of breath and was very wheezy. Continues to smoke, 1.52.5 PPD for many years. Drinks alcohol daily, no history of withdrawal/DTs but drinks 28 beers per day and has not had an alcohol free day in some time. Last drink this morning. Denies fever, chills, sweats, cough, diarrhea, constipation, chest pain, Prash pressure, lightheadedness, dizziness. Does feel improved after an hour-long nebulizer and BiPAP, although notes his abdominal pain has not improved much. Did take his medications this Medical History: Reviewed Medications: Reviewed Surgical History: Reviewed Allergies: Reviewed Social History: Current tobacco use, daily alcohol use 28 beers per day with last drink morning of 11/28/2021 Code Status: Full code, surrogate decision maker would be brother Principal Diagnosis COPD Exacerbation Discharge Exam The patient is awake, alert and oriented 3, well developed and well nourished, normocephalic and atraumatic, lying in bed and in no acute distress. HEENT--PERRL, EOMI, mucous membranes and oropharynx mildly dry Neck--supple. No JVD. No bruits. Thyroid normal, trachea midline, no adenopathy. Heart--normal S1 and S2. No murmurs, rubs or gallops. Lungs--reduced air entry, bibasilar wheeze Abdomen--normal bowel sounds and soft. Mild epigastric and left sided abdominal pain Extremities--no cyanosis or clubbing. No edema. Dermatologic--normal skin turgor, normal color, no abnormal lymph nodes, no rash. Neurologic--cranial nerves II through XII grossly intact. Rheumatologic--normal range of motion. Psychiatric--normal affect. Discharge Data Allergies Allergy/AdvReac Type Severity Reaction Status Date / Time No Known Allergies Allergy NONE Verified 11/28/21 09:26 Consultations 11/28/21 13:51 ED Decision to Admit Stat 11/30/21 15:14 Consult Pulmonology Routine Ordered Studies 11/28/21 11:39 CT abd pelvis IV con only Stat CT chest diagnostic w con Stat Hospital Course (1) COPD (chronic obstructive pulmonary disease): Acute on chronic COPD versus mucous plugging - CT chest showed mucus plug Patient with improved wheezing following duonebs and steroids CTchest: Bibasilar mucous plugging, no pleural effusion or airspace consolidation, no acute fracture or pneumothorax Significant wheezing on exam Azithromycin 500 mg x 3 days Incentive spirometry, flutter valve Guaifenesin twice daily Use percussion vest if not improving -Per Pulmonology Continue albuterol and ipratropium nebs, Continue Brovana and budesonide. - Transition to Trelegy on discharge. -Strongly encouraged complete smoking cessation. -Will need PFTs as an outpatient. Possible allergic component to symptoms. Continue Singulair. Questionable syncope and desaturation: -Patient has been having episodes of desaturation, especially after having bouts of coughing -He describes it as passing out. -His oxygen level desaturates, and as happened during code purple today -This could be due to mucus plugs -2 D ECHO was done to r/o any structural heart issues -Will consult Pulmonology, may need bronchoscopy Type 2 DM A1c 7.6 at last PCP visit Patient was starting with dietary changes as outpatient, not yet on pharmacologic therapy Glucose checks AC/at bedtime, weight-based basal bolus while inpatient basal 12u BID, CF 35, Ratio 15 BMP daily Hyponatremia In the setting of chronic alcohol use Improving from prior labs Alcohol abuse Last drink a.m. 12/25 Alcohol negative on admission No history of withdrawal/DTs Reports drinks 28 beers per day, has not had alcohol free day in some time DANIKA S protocol Hypertension Now under better control Stop lisinopril as it may worsen cough, continue hydrochlorothiazide 25 mg daily -Add carvedilol and ARB upon discharge Continue aspirin DVT prophylaxis: Lovenox CODE STATUS: Full code Diet: heart healthy/MDM (2) Rib pain on left side: Right lower quadrant abdominal pain, most likely musculoskeletal -Patient said he fell on that side sometime ago -CT abdomen did not show any acute pathology (3) Impaired fasting glucose: (4) Obstructive sleep apnea: (5) COPD with respiratory distress, acute: Total Time Total Time Spent Total Time Spent (In Minutes): 35 Discharge Plan Discharge Items Patient Disposition: Home - Self-Care Reason For Visit: AoC COPD, RLQ ABDOMINAL PAIN Discharge Diagnosis: COPD Exacerbation Activity: Resume your previous activity Non-emergency contact: Primary Care Provider and Field Control Inspector Call non-emergency contact if: you have any medication questions Follow-up/Referrals: Sidney Sapp DO [Primary Care Provider] - Diet: Regular Addtl Attending Provider Instructions: please make appointment to follow up with your Field Control Inspector Pending Studies at Discharge: No Stand-Alone Forms: My [facility] [employer], Smoking Cessation Medications and DC Order Prescriptions: New montelukast [Singulair] 10 mg Tablet 10 mg PO HS 30 Days Qty: 30 0RF prednisone 20 mg Tablet 40 mg PO DAILY 3 Days Qty: 6 0RF prednisone 10 mg tablet 30 mg PO DAILY 3 Days Qty: 9 0RF Rx Instructions: please start on the 12/05/21 prednisone 10 mg tablet 20 mg PO DAILY 3 Days Qty: 6 0RF Rx Instructions: please start on 12/08/21 prednisone 10 mg tablet 10 mg PO DAILY 1 Days Qty: 1 0RF Rx Instructions: please take on the 12/11/21 hydrochlorothiazide 25 mg tablet 25 mg PO DAILY 30 Days Qty: 30 0RF carvedilol 12.5 mg tablet 12.5 mg PO BID 30 Days Qty: 60 0RF Rx Instructions: must administer with a meal/food losartan 25 mg tablet 25 mg PO DAILY 30 Days Qty: 30 0RF Continued cyclobenzaprine 10 mg tablet 10 mg PO TID PRN (Reason: muscle spasm) Qty: 14 0RF varenicline 1 mg tablet 1 mg PO BID Qty: 180 1RF Rx Instructions: per dr narayan albuterol sulfate 90 mcg/actuation HFA aerosol inhaler 2 puff inhalation .COMPLEX PRN (Reason: shortness of breath or wheezing) Qty: 18 3RF Rx Instructions: 2 puffs inhalation with spacer every 4 hours as needed. Space inhalations 3 min. apart PRN; Trelegy Ellipta 100-62.5-25 mcg blister with device 1 inh inhalation DAILY Qty: 60 3RF Rx Instructions: PER DR NARAYAN (TOBIAS) lancets 26 gauge [facility] [place] See Rx Instructions .Route Qty: 100 5RF Rx Instructions: AC and HS and prn nicotine 14 mg/24 hr patch 24 hour 1 patch transdermal DAILY Qty: 28 0RF Rx Instructions: This has not been filled since 05/04/21,change patch daily. Start after 21mg patches nicotine 7 mg/24 hr patch 24 hour 1 patch transdermal Q24H Qty: 28 3RF levalbuterol HCl 0.31 mg/3 mL solution for nebulization See Rx Instructions .ROUTE .COMPLEX Qty: 540 2RF Dose Instruction: USE 1 VIAL IN NEBULIZER 2 TIMES DAILY NEEDED. Rx Instructions: USE 1 VIAL IN NEBULIZER 2 TIMES DAILY NEEDED. buspirone 15 mg tablet 15 mg PO TID PRN (Reason: anxiety) Qty: 60 5RF Rx Instructions: PER DR NARAYAN (TOBIAS) blood[place] [facility] [place] Instructions .Route Qty: 1 0RF Rx Instructions: As directed (TOBIAS) Blood Glucose Test Strip See Rx Instructions .Route Qty: 50 5RF Rx Instructions: As directed aspirin 81 mg Tablet,Delayed Release (/Ec) 81 mg PO DAILY Discontinued lisinopril-hydrochlorothiazide 20-25 mg tablet 1 tab PO DAILY Qty: 90 3RF Rx Instructions: PER DR NARAYAN Discharge Orders: Discharge Order (Routine); Ordered 12/02/21 Ordered By: Max Dowd/Other Patient Handouts: Diabetes: Meal Planning, Type 2 Diabetes Admission Data Admit Date/Time: 11/28/21 14:20 Attending Provider: Max Messina Admit Provider: Linden Clarke Primary Care Provider: Sidney Sapp Other Providers: Linden Clarke ; Dima Gonsalves Other Interventions: Discharge Summary Assessment (RN) Last Done: 12/02/21 11:55 Coding Level of Care Code D/C DAY MANAGEMENT >30 MINS Diagnoses COPD (chronic obstructive pulmonary disease) J44.9 Rib pain on left side R07.81 Impaired fasting glucose R73.01 Obstructive sleep apnea G47.33 COPD with respiratory distress, acute J44.1 Time Spent (min) 35
--- NOTE | 2021-12-11 08:44 | Coding Query ---
To promote full compliance with coding requirements relating to patient care, provider participation is requested in all cases of armhole baster hand uncertainty. Please assist us with the question(s) below: Coding Question(s): The diagnosis(es) below was documented in the ER H&P, and/or Pulmonary Consult and Pulmonary Progress Note, then subsequently fell off all further documentation. Please indicate if it is still a possible diagnosis or ruled out. Physician's Response(s): ACUTE RESPIRATORY FAILURE, ACUTE HYPOXIC RESPIRATORY FAILURE - (ER documents Acute Respiratory Failure, Pulmonary Consultation and Pulmonary PN document Acute Hypoxic Respiratory Failure, and documentation changed to respiratory distress, acute in later PN's and Discharge Summary) ( X ) Diagnosed and POA ( ) Diagnosed and not POA ( ) Ruled out ( ) Other (please specify) ALCOHOL WITHDRAWAL - (documented on ER) ( ) Diagnosed and POA ( ) Diagnosed and not POA ( ) Ruled out ( X ) Other (please specify) At risk due to hx of regular ETOH intake .Was not observed to be in withdrawal following admission. MTDD
== END 2021-12-02 13:27 | disposition home or self-care (01) | DRG 189 ==
LOC: ED 10:23 → EDINP 14:20 → SUATTDRO 14:20 → 2N 17:08 → 2S 11-30 15:10